=== PATIENT | female | born 1960 | race Caucasian/White ===

== ENCOUNTER → 2016-10-06 | Outpatient (REF) | payer MEDICARE, MEDICAID ==
[~2016-10-06] MED LIST: /ADVA50050 INH; /ESCI20TA OR; /LOR25TA PO; /MOXI40TA PO; /TIOT18INH INH; ALBU0.084 INH; ALBU83IN IN; BACIDCA PO; CEFT500T PO; CEFU125S PO; DICL0.1S7 TOP; DIPH2.5L PO; ESCI20TA PO; FLEXERIL PO; IMIT20SP; ISENTRESS PO; KEPP500T4 PO; LYRI200C PO; OXYB5TAB5 OR; POLYBTL PO; PREG100CA OR; PRIL40CA OR; ROPI0.5T PO; ROPI2TAB PO; STAVUDINE PO; SUMA6INJ16 SC; SUSTIVA PO; TRAZ100T PO; TRAZ100T2 PO; TRAZ150T PO; VIREAD PO; [UNRECOGNIZED DRUG - CODE] PO; emla cream TOP; keflex PO; lyrica PO; percocet PO; trazadone PO; ultram PO; vicodin PO
[2016-10-06 12:26] LABS: ALBUMIN 3.9 GM/DL (3.2-5.2); ALBUMIN/GLOBULIN RATIO 1.15 (1.00-1.93); ALKALINE PHOSPHATASE 85 U/L (45-117); ALT/SGPT 20 U/L (12-78); ANION GAP 6 MEQ/L (8-16); AST/SGOT 19 U/L (15-37); BILIRUBIN,TOTAL 0.2 MG/DL (0.2-1.0); BLOOD UREA NITROGEN 23 MG/DL (7-18); CALCIUM LEVEL 8.9 MG/DL (8.5-10.1); CARBON DIOXIDE LEVEL 26 MEQ/L (21-32); CHLORIDE LEVEL 108 MEQ/L (98-107); CHOLESTEROL LEVEL 115 MG/DL (<200); CREATININE FOR GFR 1.24 MG/DL (0.55-1.02); GLOMERULAR FILTRATION RATE 47.5 (>51); GLUCOSE, FASTING 93 MG/DL (70-105); POTASSIUM SERUM 4.5 MEQ/L (3.5-5.1); SODIUM LEVEL 140 MEQ/L (136-145); TOTAL PROTEIN 7.3 GM/DL (6.4-8.2); TRIGLYCERIDES LEVEL 130 MG/DL (<150)
[2016-10-08 00:16] LABS: %CD3+CD4+CD8+ 0.3 % (Not Estab.); %CD3+CD4+CD8- 29.7 % (Not Estab.); %CD3+CD4-CD8+ 37.9 % (Not Estab.); %CD3+CD4-CD8- 1.5 % (Not Estab.); ABS CD3+CD4+CD8+ 8 /uL (Not Estab.); ABS CD3+CD4+CD8- 772 /uL (Not Estab.); ABS CD3+CD4-CD8+ 985 /uL (Not Estab.); ABS CD3+CD4-CD8- 39 /uL (Not Estab.); CD4/CD8 NYSDOH RATIO 0.78 (Not Estab.); Eosinophils 0 % (.); HGB 15.1 g/dL (11.1-15.9); Monocytes 8 % (.); Neutrophils 56 % (.)
== END ==
LOC: M SFHCPLAZ 09:25
PROVIDERS: ATTEND Internal Medicine Infectious Disease
DX: B20 Human immunodeficiency virus [HIV] disease (principal); I77.1 Stricture of artery; K21.9 Gastro-esophageal reflux disease without esophagitis; Z79.891 Long term (current) use of opiate analgesic; Z79.899 Other long term (current) drug therapy
CPT/HCPCS: 36415; 80053; 80061; 81001; 86360; 86780; 87491; 87536; 87591; G0463

== ENCOUNTER → 2017-01-16 | Outpatient (REF) | payer MEDICARE, MEDICAID ==
[2017-01-16 13:39] LABS: INR 0.92
[2017-01-16 13:40] LABS: BASO % 0.4 % (0.0-1.0); EOS % 0.3 % (0.0-3.0); LARGE UNSTAINED CELL # 0.2 K/mm3 (0.0-0.4); LARGE UNSTAINED CELL % 2.6 % (0.0-4.0); LYMPH # 2.7 K/mm3 (1.5-4.5); LYMPH % 33.7 % (24.0-44.0); MEAN CORPUSCULAR HEMOGLOBIN 38.9 pg (27.0-33.0); MEAN CORPUSCULAR HGB CONC 34.5 g/dl (32.0-36.5); MEAN CORPUSCULAR VOLUME 112.8 fl (80.0-96.0); MONO # 0.6 K/mm3 (0.0-0.8); MONO % 7.5 % (0.0-5.0); NEUTROPHILS # 4.1 K/mm3 (1.8-7.7); NEUTROPHILS % 55.5 % (36.0-66.0); PLATELET COUNT, AUTOMATED 151 k/mm3 (150-450); RED CELL DISTRIBUTION WIDTH 14.3 % (11.5-14.5); WHITE BLOOD COUNT 7.4 K/mm3 (4.0-10.0)
[2017-01-16 15:13] LABS: CALCIUM LEVEL 8.9 MG/DL (8.5-10.1); CREATININE FOR GFR 1.13 MG/DL (0.55-1.02); GLOMERULAR FILTRATION RATE 52.8 (>51)
== END ==
LOC: M LABDRWAD 13:08
PROVIDERS: ATTEND Surgery Vascular Surgery
DX: Z01.818 Encounter for other preprocedural examination (principal); I70.211 Atherosclerosis of native arteries of extremities with intermittent claudication, right leg; D69.8 Other specified hemorrhagic conditions

== ENCOUNTER → 2017-03-23 | Outpatient (CLI) | payer MEDICARE, MEDICAID ==
[~2017-03-23] MED LIST changes: +ISOVUE-370 76% 100ML VIAL (Q9967) As Ordered ONE
--- NOTE | 2017-03-23 13:21 | REP ---
CT CHEST WITH IV CONTRAST: HISTORY: 5 mm density left upper lobe. Comparison CT study is from May 01, 2014. CT CONTRAST DOSE: 75 mL of intravenous Isovue 370. 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 Incidental note is made of a patent arterial vascular bypass graft proximal anastomoses is in the axillary artery on the right and the graft is seen coursing along the right lateral chest wall off the imaging field of view. No hilar or mediastinal mass or adenopathy is seen. No pleural or pericardial effusion is seen. No adrenal lesion is observed on either side. The visualized abdominal structures are otherwise unremarkable. There are mild emphysematous changes in the upper lobes bilaterally. No infiltrate is seen in the lung dawson. There is a calcified granuloma in the left upper lobe on image #29 of series 201 unchanged from the 05/01/2014 prior study. There is another calcified granuloma just caudal to this anteriorly best seen on image number 33 also unchanged. A calcified granulomatous nodule is seen in the superior segment of the left lower lobe on image number 49 unchanged from the prior exam. There is some chronic fibroatelectasis in the medial segment of the right middle lobe unchanged. No significant pulmonary nodule or mass lesion is seen. IMPRESSION: 1. Mild emphysematous changes unchanged. 2. Chronic fibroatelectasis right middle lobe unchanged. 3. Old granulomatous calcifications unchanged. 4. No active disease. 5. Right axillofemoral graft noted incidentally. Signed by José Fernandez MD 03/23/2017 01:40 P
== END ==
LOC: M RAD 09:02
PROVIDERS: ATTEND Nurse Practitioner Family
DX: J84.10 Pulmonary fibrosis, unspecified (principal); J43.9 Emphysema, unspecified
CPT/HCPCS: 71260; Q9967

== ENCOUNTER → 2017-04-18 | Outpatient (REF) | payer MEDICARE, MEDICAID ==
[~2017-04-18] MED LIST changes: -ISOVUE-370 76% 100ML VIAL (Q9967) As Ordered ONE
== END ==
LOC: M SFHCPLAZ 09:04
PROVIDERS: ATTEND Internal Medicine Infectious Disease
DX: B20 Human immunodeficiency virus [HIV] disease (principal); I73.9 Peripheral vascular disease, unspecified
CPT/HCPCS: 36415; 90686; G0008; G0463

== ENCOUNTER → 2017-12-04 | Outpatient (CLI) | payer MEDICARE, MEDICAID | LOC: M RAD 12:46 | DX: M79.645 Pain in left finger(s) (principal) | CPT/HCPCS: 73120 ==

== ENCOUNTER → 2017-12-25 | Outpatient (REF) | payer MEDICARE, MEDICAID ==
[2017-12-25 13:44] LABS: PARTIAL THROMBOPLASTIN TIME 30.3 SECONDS (26.8-37.9)
== END ==
LOC: M LAB REF 12:30
DX: Z01.812 Encounter for preprocedural laboratory examination (principal); D69.8 Other specified hemorrhagic conditions; I70.211 Atherosclerosis of native arteries of extremities with intermittent claudication, right leg
CPT/HCPCS: 85730

== ENCOUNTER → 2017-12-26 | Outpatient (REF) | payer MEDICARE, MEDICAID ==
[2017-12-26 12:51] LABS: BASO % 0.1 % (0.0-1.0); EOS % 0.3 % (0.0-3.0); HEMATOCRIT 36.9 % (36.0-47.0); HEMOGLOBIN 12.6 g/dl (12.0-15.5); IMMATURE GRANULOCYTE % 0.3 % (0-3.0); LYMPH # 2.3 10^3/uL (1.5-4.5); LYMPH % 33.8 % (24.0-44.0); MEAN CORPUSCULAR HEMOGLOBIN 36.2 pg (27.0-33.0); MEAN CORPUSCULAR HGB CONC 34.1 g/dl (32.0-36.5); MONO # 0.8 10^3/uL (0.0-0.8); MONO % 11.6 % (0.0-5.0); NEUTROPHILS # 3.7 10^3/uL (1.8-7.7); NEUTROPHILS % 53.9 % (36.0-66.0); PLATELET COUNT, AUTOMATED 183 10^3/uL (150-450); RED BLOOD COUNT 3.48 10^6/uL (4.00-5.40); RED CELL DISTRIBUTION WIDTH 14.8 % (11.5-14.5); WHITE BLOOD COUNT 6.8 10^3/uL (4.0-10.0)
[2017-12-26 13:09] LABS: INR 0.92; PROTHROMBIN TIME 12.4 SECONDS (12.4-14.5)
[2017-12-26 13:10] LABS: PARTIAL THROMBOPLASTIN TIME 28.3 SECONDS (26.8-37.9)
[2017-12-26 13:16] LABS: ANION GAP 8 MEQ/L (8-16); BLOOD UREA NITROGEN 21 MG/DL (7-18); CALCIUM LEVEL 8.5 MG/DL (8.5-10.1); CARBON DIOXIDE LEVEL 24 MEQ/L (21-32); CHLORIDE LEVEL 109 MEQ/L (98-107); CREATININE FOR GFR 1.01 MG/DL (0.55-1.30); GLOMERULAR FILTRATION RATE 59.9 (>51); GLUCOSE, FASTING 94 MG/DL (70-100); POTASSIUM SERUM 4.4 MEQ/L (3.5-5.1); SODIUM LEVEL 141 MEQ/L (136-145)
== END ==
LOC: M LABDRWAD 12:42
DX: Z01.818 Encounter for other preprocedural examination (principal); I70.211 Atherosclerosis of native arteries of extremities with intermittent claudication, right leg; D69.8 Other specified hemorrhagic conditions
CPT/HCPCS: 80048

== ENCOUNTER → 2018-02-27 | Outpatient (REF) | payer MEDICARE, MEDICAID | LOC: M SFHCPLAZ 11:50 | DX: B20 Human immunodeficiency virus [HIV] disease (principal); I77.1 Stricture of artery; Z53.8 Procedure and treatment not carried out for other reasons ==

== ENCOUNTER → 2018-04-02 | Outpatient (REF) | payer MEDICARE ==
[2018-04-02 12:39] LABS: APPEARANCE, URINE CLEAR (CLEAR); BACTERIA, URINE AUTO NEGATIVE (NEGATIVE); BILIRUBIN, URINE AUTO NEGATIVE (NEGATIVE); BLOOD, URINE BLOOD NEGATIVE (NEGATIVE); COLOR, URINE STRAW (YELLOW); GLUCOSE, URINE (UA) AUTO NEGATIVE (NEGATIVE); KETONE, URINE AUTO NEGATIVE (NEGATIVE); LEUKOCYTE ESTERASE, URINE AUTO NEGATIVE (NEGATIVE); MUCUS, URINE SMALL (NEGATIVE); NITRITE, URINE AUTO NEGATIVE (NEGATIVE); PROTEIN, URINE AUTO NEGATIVE (NEGATIVE); RBC, URINE AUTO 0 /HPF (0-3); SPECIFIC GRAVITY URINE AUTO 1.009 (1.002-1.035); SQUAMOUS EPITHELIAL CELL UR AU 0 /HPF (0-6); UROBILINOGEN, URINE AUTO 0.2 mg/dL (0.0-2.0); WBC, URINE AUTO 1 /HPF (0-3)
[2018-04-02 14:05] LABS: CHLAMYDIA DNA AMPLIFICATION NEGATIVE (NEGATIVE); GC DNA AMPLIFICATION NEGATIVE (NEGATIVE)
== END ==
LOC: M SFHCPLAZ 10:33
DX: Z11.3 Encounter for screening for infections with a predominantly sexual mode of transmission (principal); B20 Human immunodeficiency virus [HIV] disease
CPT/HCPCS: 81001

== ENCOUNTER → 2018-04-04 | Outpatient (REF) | payer MEDICARE ==
[2018-04-04 16:49] LABS: ALBUMIN 3.7 GM/DL (3.2-5.2); ALKALINE PHOSPHATASE 79 U/L (45-117); ALT/SGPT 20 U/L (12-78); ANION GAP 7 MEQ/L (8-16); AST/SGOT 15 U/L (7-37); BILIRUBIN,TOTAL 0.3 MG/DL (0.2-1.0); BLOOD UREA NITROGEN 16 MG/DL (7-18); CARBON DIOXIDE LEVEL 28 MEQ/L (21-32); CHLORIDE LEVEL 105 MEQ/L (98-107); CHOLESTEROL LEVEL 108 MG/DL (<200); CHOLESTEROL RISK RATIO 2.347 (<5); CREATININE FOR GFR 1.09 MG/DL (0.55-1.30); GLOMERULAR FILTRATION RATE 54.9 (>51); GLUCOSE, FASTING 108 MG/DL (70-100); HDL CHOLESTEROL 46 MG/DL (>40); LDL CHOLESTEROL 41.2 MG/DL (<100); NON-HDL-C 62 MG/DL; POTASSIUM SERUM 4.3 MEQ/L (3.5-5.1); SODIUM LEVEL 140 MEQ/L (136-145); TOTAL PROTEIN 7.4 GM/DL (6.4-8.2); TRIGLYCERIDES LEVEL 104 MG/DL (<150)
[2018-04-07 00:08] LABS: % CD8 Pos Lymph 38.7 % (12.0-35.5); %CD4 Pos Lymphs 35.9 % (30.8-58.5); ABS Lymphs 1.9 x10E3/uL (0.7-3.1); ABS Monocytes 0.5 x10E3/uL (0.1-0.9); ABS Neutophils 4.1 x10E3/uL (1.4-7.0); Abs CD4 Helper 682 /uL (359-1519); Abs CD8 Suppres 735 /uL (109-897); CD4/CD8 Ratio 0.93 (0.92-3.72); Eosinophils 0 % (Not Estab.); HCT 39.6 % (34.0-46.6); HGB 13.4 g/dL (11.1-15.9); Immature Grans 0 % (Not Estab.); Lymphocytes 29 % (Not Estab.); MCH 36.2 pg (26.6-33.0); MCHC 33.8 g/dL (31.5-35.7); MCV 107 fL (79-97); Monocytes 8 % (Not Estab.); Neutrophils 63 % (Not Estab.); Platelets 211 x10E3/uL (150-379); QUANTIFERON GOLD TB Negative (Negative); RDW 15.7 % (12.3-15.4); TB Test (QFT) Antigen 0.05 IU/mL (.); TB Test (QFT) Antigen Minus Ni 0.02 IU/mL (.); TB Test (QFT) Mitogen 8.82 IU/mL (.); TB Test (QFT) Nil 0.03 IU/mL (.); WBC 6.6 x10E3/uL (3.4-10.8)
[2018-04-11 00:07] LABS: HIV-1 RNA PCR QUANT 2 LC550285 <20 copies/mL (.)
== END ==
LOC: M SFHCPLAZ 12:04 → M SFHCADAM 12:04
DX: B20 Human immunodeficiency virus [HIV] disease (principal); I77.1 Stricture of artery
CPT/HCPCS: 80053

== ENCOUNTER → 2018-04-30 | Outpatient (CLI) | payer MEDICARE | LOC: M ADAMS 09:26 | DX: S20.212A Contusion of left front wall of thorax, initial encounter (principal); M85.80 Other specified disorders of bone density and structure, unspecified site | CPT/HCPCS: 71101 ==

== ENCOUNTER → 2018-05-28 | Outpatient (REF) | payer MEDICARE ==
[2018-06-01 12:51] LABS: HSV-1 DNA Negative (Negative); HSV-2 DNA Negative (Negative); VARICELLA ZOSTER VIRUS PCR Negative (Negative)
== END ==
LOC: M SFHCPLAZ 13:47
DX: B20 Human immunodeficiency virus [HIV] disease (principal); Z23 Encounter for immunization
CPT/HCPCS: 87529

== ENCOUNTER → 2018-09-10 | Outpatient (REF) | payer MEDICARE ==
[2018-09-10 11:24] LABS: APPEARANCE, URINE CLEAR (CLEAR); BACTERIA, URINE AUTO NEGATIVE (NEGATIVE); BILIRUBIN, URINE AUTO NEGATIVE (NEGATIVE); BLOOD, URINE BLOOD NEGATIVE (NEGATIVE); COLOR, URINE YELLOW (YELLOW); GLUCOSE, URINE (UA) AUTO NEGATIVE (NEGATIVE); KETONE, URINE AUTO NEGATIVE (NEGATIVE); LEUKOCYTE ESTERASE, URINE AUTO NEGATIVE (NEGATIVE); NITRITE, URINE AUTO NEGATIVE (NEGATIVE); PROTEIN, URINE AUTO NEGATIVE (NEGATIVE); RBC, URINE AUTO 2 /HPF (0-3); SPECIFIC GRAVITY URINE AUTO 1.025 (1.002-1.035); SQUAMOUS EPITHELIAL CELL UR AU 0 /HPF (0-6); UROBILINOGEN, URINE AUTO 0.2 mg/dL (0.0-2.0); WBC, URINE AUTO 1 /HPF (0-3)
[2018-09-10 12:35] LABS: ALBUMIN 3.8 GM/DL (3.2-5.2); ALT/SGPT 20 U/L (12-78); BILIRUBIN,TOTAL 0.2 MG/DL (0.2-1.0); BLOOD UREA NITROGEN 25 MG/DL (7-18); CALCIUM LEVEL 8.6 MG/DL (8.5-10.1); CARBON DIOXIDE LEVEL 25 MEQ/L (21-32); CHLORIDE LEVEL 106 MEQ/L (98-107); CHOLESTEROL LEVEL 130 MG/DL (<200); CHOLESTEROL RISK RATIO 2.131 (<5); CREATININE FOR GFR 0.95 MG/DL (0.55-1.30); GLOMERULAR FILTRATION RATE > 60.0 (>51); GLUCOSE, FASTING 88 MG/DL (70-100); HDL CHOLESTEROL 61 MG/DL (>40); LDL CHOLESTEROL 51 MG/DL (<100); NON-HDL-C 69 MG/DL; POTASSIUM SERUM 4.5 MEQ/L (3.5-5.1); SODIUM LEVEL 138 MEQ/L (136-145); TOTAL PROTEIN 7.5 GM/DL (6.4-8.2); TRIGLYCERIDES LEVEL 89 MG/DL (<150)
[2018-09-12 10:41] LABS: % CD8 Pos Lymph 37.2 % (12.0-35.5); %CD4 Pos Lymphs 35.3 % (30.8-58.5); ABS Lymphs 1.9 x10E3/uL (0.7-3.1); ABS Monocytes 0.7 x10E3/uL (0.1-0.9); ABS Neutophils 3.7 x10E3/uL (1.4-7.0); Abs CD4 Helper 671 /uL (359-1519); Abs CD8 Suppres 707 /uL (109-897); CD4/CD8 Ratio 0.95 (0.92-3.72); Eosinophils 1 % (Not Estab.); HCT 39.8 % (34.0-46.6); HGB 13.1 g/dL (11.1-15.9); Immature Grans 0 % (Not Estab.); Lymphocytes 30 % (Not Estab.); MCH 34.6 pg (26.6-33.0); MCHC 32.9 g/dL (31.5-35.7); MCV 105 fL (79-97); Monocytes 11 % (Not Estab.); Neutrophils 58 % (Not Estab.); Platelets 173 x10E3/uL (150-379); RBC 3.79 x10E6/uL (3.77-5.28); RDW 15.6 % (12.3-15.4); WBC 6.3 x10E3/uL (3.4-10.8)
[2018-09-13 00:07] LABS: HIV-1 RNA PCR QUANT 2 LC550285 40 copies/mL (.); HIV-1 RNA PCR QUANT 3 LC550285 1.602 (.)
== END ==
LOC: M SFHCPLAZ 08:46
PROVIDERS: ATTEND Internal Medicine Infectious Disease
DX: B20 Human immunodeficiency virus [HIV] disease (principal); I73.9 Peripheral vascular disease, unspecified; R35.0 Frequency of micturition; R21 Rash and other nonspecific skin eruption; M51.36 Other intervertebral disc degeneration, lumbar region; I77.1 Stricture of artery; M25.549 Pain in joints of unspecified hand
CPT/HCPCS: 36415; 80053; 80061; 81001; 86360; 86480; 87086; 87536; G0463

== ENCOUNTER 2018-11-08 10:30 | Day surgery (SDC) | payer MEDICARE ==
[~2018-11-08] VITALS: Ht 142.2 cm; Wt 41.3 kg
[~2018-11-08 10:30] MED LIST changes: -/ADVA50050 INH; -/ESCI20TA OR; -/MOXI40TA PO; -/TIOT18INH INH; +ADVA1AER2 INH; +AVEL1TAB2 PO; +AVEL1TAB3 PO; +BUSP15TA47 PO; +CYCL10TA PO; +DITR5TAB PO; +HYDR-3719 PO; +LEVE15SO2 PO; +LEXA1TAB2 OR; +LEXA1TAB2 PO; +LIDOCAINE 2% INJ 100 MG/5 ML SDV (FOR ANES.) As Ordered ONE; +MIRA33504 PO; +OMEP40CA2 PO; +PROAAER10 INH; +PROBCAP4 PO; +PROPOFOL 200 MG/20 ML VIAL As Ordered ONE; +ROPI2TAB24 PO; +SPIR1CAP INH; +SUMA4INJ4 SC; +TIOT18INH INH; +TRAZ300T2 PO; +[UNRECOGNIZED DRUG - CODE] PO
[2018-11-08] MEDS: NS 1,000 ML IV ONE (11:05)
[2018-11-08] MEDS ORDERED: fentaNYL 100 MCG/2 ML INJECTION (J3010) As Ordered ONE (11:55)
--- NOTE | 2018-11-08 12:31 | ROOR ---
Patient Name: Olamide Matson Procedure Date: 11/08/2018 12:16 PM Date of : 1960 Age: 58 Room: [facility] Gender: Female Note Status: Finalized Procedure: Upper GI endoscopy Indications: Epigastric abdominal pain Providers: Adrian JEONG MD Referring MD: Анна FOX MD. Requesting Provider: Medicines: Monitored Anesthesia Care Complications: No immediate complications. Procedure: Pre-Anesthesia Assessment: - The heart rate, respiratory rate, oxygen saturations, blood pressure, adequacy of pulmonary ventilation, and response to care were monitored throughout the procedure. The Endoscope was introduced through the mouth, and advanced to the third part of duodenum. The upper GI endoscopy was accomplished without difficulty. The patient tolerated the procedure well. Findings: Diffuse mildly erythematous mucosa without bleeding was found in the gastric antrum. This was biopsied with a cold forceps for histology. Bilious fluid was found in the stomach. The examined esophagus was normal. The examined duodenum was normal. Impression: - Erythematous mucosa in the antrum.- Bilious gastric fluid. Biopsied. - Normal esophagus. - Normal examined duodenum. Recommendation: - Use sucralfate tablets 1 gram PO BID. - (the script was sent to your pharmacy on file) Adrian Jeong MD Adrian JEONG MD 11/08/2018 12:30:19 PM Electronically signed by Adrian JEONG MD Number of Addenda: 0 Note Initiated On: 11/08/2018 12:16 PM Estimated Blood Loss: Estimated blood loss: none.
--- NOTE | 2018-11-08 12:40 | ROOR ---
Patient Name: Olamide Matson Procedure Date: 11/08/2018 12:17 PM Date of : 1960 Age: 58 Room: [facility] Gender: Female Note Status: Finalized Procedure: Colonoscopy Indications: High risk colon cancer surveillance: Personal history of colonic polyps, Last colonoscopy: October 2013 Providers: Adrian JEONG MD Referring MD: Анна FOX MD. Requesting Provider: Medicines: Monitored Anesthesia Care Complications: No immediate complications. Procedure: Pre-Anesthesia Assessment: - The heart rate, respiratory rate, oxygen saturations, blood pressure, adequacy of pulmonary ventilation, and response to care were monitored throughout the procedure. The Colonoscope was introduced through the anus and advanced to the cecum, identified by appendiceal orifice and ileocecal valve. The colonoscopy was performed with difficulty due to inadequate bowel prep. The patient tolerated the procedure well. The quality of the bowel preparation was poor. Findings: The perianal and digital rectal examinations were normal. The colon is grossly normal without large tumors or obstructing lesions. Unable to perform adequate detail examination. Small lesions may have been missed. Impression: - Preparation of the colon was poor. - The colon is without large tumors or obstructing lesions. Unable to perform adequate detail examination. Small lesions may have been missed. - No specimens collected. Recommendation: - Repeat colonoscopy at the next available appointment because the bowel preparation was poor. - My office will call you within the next few days to reschedule a colonoscopy with alternate colon preparation. Adrian Jeong MD Adrian JEONG MD 11/08/2018 12:39:58 PM Electronically signed by Adrian JEONG MD Number of Addenda: 0 Note Initiated On: 11/08/2018 12:17 PM Estimated Blood Loss: Estimated blood loss: none.
[2018-11-08 13:00] VITALS: BP 112/79
== END 2018-11-08 13:13 | disposition home or self-care (01) ==
LOC: M OPP 10:30
PROVIDERS: ATTEND Internal Medicine Gastroenterology
DX: K29.60 Other gastritis without bleeding (principal); R10.13 Epigastric pain; Z86.010 Personal history of colon polyps
CPT/HCPCS: 45378; 88305; J3010

== ENCOUNTER → 2019-07-19 | Outpatient (CLI) | payer MEDICARE ==
[~2019-07-19] MED LIST changes: -LIDOCAINE 2% INJ 100 MG/5 ML SDV (FOR ANES.) As Ordered ONE; -OMEP40CA2 PO; +OMEP40CA97 PO; -PROPOFOL 200 MG/20 ML VIAL As Ordered ONE
--- NOTE | 2019-07-19 15:08 | REPMRS ---
Patient History The patient states she has not had a clinical breast exam in over a year. No known family history of cancer. 3D TOMOSYNTHESIS WAS PERFORMED. [facility] lifetime risk for breast cancer is 3.6%. Digital Woman Screen Mammo: July 19, 2019 - Exam #: [id number] Bilateral CC and MLO view(s) were taken. Technologist: Zenia Doran, Technologist Prior study comparison: November 12, 2014, digital woman screen mammo performed at [facility]. December 25, 2007, bilateral screening mammogram, performed at [facility]. FINDINGS: There are scattered fibroglandular densities. There has been no change in the appearance of the mammogram from the prior studies. There is a mild amount of residual fibroglandular tissue which is fairly symmetric. There is no interval development of dominant mass, architectural distortion, or clustered microcalcification suggestive of malignancy. Assessment: BI-RADS/ACR category 1 mammogram. Negative Mammogram. Recommendation Routine screening mammogram in 1 year (for women over age 40). This mammogram was interpreted with the aid of an FDA-approved computer-aided dectection system. Electronically Signed By: Miah Booker MD 07/19/19 [id number]
[2019-07-19 17:58] LABS: CALCIUM LEVEL 8.9 MG/DL (8.5-10.1); CREATININE FOR GFR 1.29 MG/DL (0.55-1.30); PHOSPHORUS LEVEL 2.6 MG/DL (2.5-4.9); POTASSIUM SERUM 4.4 MEQ/L (3.5-5.1)
[2019-07-19 17:59] LABS: ALBUMIN 3.9 GM/DL (3.2-5.2); BILIRUBIN,TOTAL 0.2 MG/DL (0.2-1.0); MAGNESIUM LEVEL 2.1 MG/DL (1.8-2.4); TOTAL PROTEIN 7.3 GM/DL (6.4-8.2)
--- NOTE | 2019-07-25 15:06 | DEXA ---
AP SPINE L1 - L4 0.872 -2.6 -1.4 LT FEMUR TOTAL 0.597 -3.3 -2.3 LT NECK 0.597 -3.2 -1.9 RT FEMUR TOTAL 0.593 -3.3 -2.4 RT NECK 0.603 -3.1 -1.9 TOTAL BODY TOTAL OTHER COMMENTS: There is osteoporosis of the spine and hips. The density of the spine has decreased 6.1% since 09/09/2005. The density of the left hip has decreased 18.3% since 09/09/2005. The density of the right hip has decreased 19.2% since 09/09/2005. FOLLOW-UP: Recommendation for the next bone density exam: 2 years. SALO
[2019-07-27 00:08] LABS: % CD8 Pos Lymph 39.2 % (12.0-35.5); %CD4 Pos Lymphs 34.9 % (30.8-58.5); ABS Lymphs 2.9 x10E3/uL (0.7-3.1); ABS Monocytes 0.6 x10E3/uL (0.1-0.9); Abs CD4 Helper 1012 /uL (359-1519); Abs CD8 Suppres 1137 /uL (109-897); CD4/CD8 Ratio 0.89 (0.92-3.72); Eosinophils 0 % (Not Estab.); HCT 41.4 % (34.0-46.6); HGB 13.8 g/dL (11.1-15.9); HIV-1 RNA PCR QUANT 1 LC162545 <20 copies/mL (.); Immature Grans 0 % (Not Estab.); Lymphocytes 44 % (Not Estab.); MCH 36.3 pg (26.6-33.0); MCHC 33.3 g/dL (31.5-35.7); MCV 109 fL (79-97); Monocytes 9 % (Not Estab.); Neutrophils 47 % (Not Estab.); Platelets 187 x10E3/uL (150-450); RDW 15.3 % (12.3-15.4); WBC 6.6 x10E3/uL (3.4-10.8)
== END ==
LOC: M WHC 13:40
PROVIDERS: ATTEND Internal Medicine Infectious Disease
DX: G25.3 Myoclonus (principal); B20 Human immunodeficiency virus [HIV] disease; Z12.31 Encounter for screening mammogram for malignant neoplasm of breast; M85.851 Other specified disorders of bone density and structure, right thigh

== ENCOUNTER → 2020-01-28 | Outpatient (CLI) | payer MEDICARE ==
[~2020-01-28] MED LIST changes: +CYCL-707 PO; -CYCL10TA PO; +ROPI0.5T3 PO
[2020-01-28 12:39] LABS: APPEARANCE, URINE HAZY (CLEAR); BACTERIA, URINE AUTO NEGATIVE (NEGATIVE); BILIRUBIN, URINE AUTO NEGATIVE (NEGATIVE); BLOOD, URINE BLOOD NEGATIVE (NEGATIVE); COLOR, URINE YELLOW (YELLOW); GLUCOSE, URINE (UA) AUTO NEGATIVE (NEGATIVE); KETONE, URINE AUTO NEGATIVE (NEGATIVE); LEUKOCYTE ESTERASE, URINE AUTO TRACE (NEGATIVE); MUCUS, URINE SMALL (NEGATIVE); NITRITE, URINE AUTO NEGATIVE (NEGATIVE); PROTEIN, URINE AUTO 1+ mg/dL (NEGATIVE); RBC, URINE AUTO 0 /HPF (0-3); SQUAMOUS EPITHELIAL CELL UR AU 3 /HPF (0-6); UROBILINOGEN, URINE AUTO 0.2 mg/dL (0.0-2.0); WBC, URINE AUTO 1 /HPF (0-3)
[2020-01-28 13:03] LABS: ALBUMIN 3.8 GM/DL (3.2-5.2); BILIRUBIN,TOTAL 0.3 MG/DL (0.2-1.0); CALCIUM LEVEL 8.8 MG/DL (8.8-10.2); CHOLESTEROL RISK RATIO 2.454 (<5); CREATININE FOR GFR 1.16 MG/DL (0.55-1.30); GLOMERULAR FILTRATION RATE 50.7 (>45); POTASSIUM SERUM 4.5 MEQ/L (3.5-5.1); TOTAL PROTEIN 7.6 GM/DL (6.4-8.2)
[2020-01-28 15:35] LABS: CHLAMYDIA DNA AMPLIFICATION NEGATIVE (NEGATIVE); GC DNA AMPLIFICATION NEGATIVE (NEGATIVE)
[2020-01-29 14:09] LABS: % CD8 Pos Lymph 37.6 % (12.0-35.5); %CD4 Pos Lymphs 31.7 % (30.8-58.5); ABS Lymphs 1.8 x10E3/uL (0.7-3.1); ABS Monocytes 0.6 x10E3/uL (0.1-0.9); ABS Neutophils 3.6 x10E3/uL (1.4-7.0); Abs CD4 Helper 571 /uL (359-1519); Abs CD8 Suppres 677 /uL (109-897); CD4/CD8 Ratio 0.84 (0.92-3.72); Eosinophils 0 % (Not Estab.); HCT 37.6 % (34.0-46.6); HGB 13.3 g/dL (11.1-15.9); Immature Grans 0 % (Not Estab.); Lymphocytes 29 % (Not Estab.); MCH 36.6 pg (26.6-33.0); MCHC 35.4 g/dL (31.5-35.7); MCV 104 fL (79-97); Monocytes 11 % (Not Estab.); Neutrophils 60 % (Not Estab.); Platelets 175 x10E3/uL (150-450); RBC 3.63 x10E6/uL (3.77-5.28); WBC 6.1 x10E3/uL (3.4-10.8)
[2020-01-30 15:17] LABS: HIV-1 RNA PCR QUANT 2 LC550285 <20 copies/mL (.)
== END ==
LOC: M PLALAB 09:24
PROVIDERS: ATTEND Internal Medicine Infectious Disease
DX: B20 Human immunodeficiency virus [HIV] disease (principal); I77.1 Stricture of artery

== ENCOUNTER → 2020-07-23 | Outpatient (CLI) | payer MEDICARE ==
--- NOTE | 2020-07-23 11:24 | REPMRS ---
Patient History The patient states she has not had a clinical breast exam in over a year. No known family history of cancer. Digital Woman Screen Mammo: July 23, 2020 - Exam #: [id number] Bilateral CC and MLO view(s) were taken. Technologist: Zenia Doran, Technologist Prior study comparison: July 19, 2019, bilateral digital woman screen mammo performed at [facility]. November 12, 2014, digital woman screen mammo performed at [facility]. December 25, 2007, bilateral screening mammogram, performed at [facility]. FINDINGS: There are scattered fibroglandular densities. The [employer] volumetric breast density category is:B. There is a corrugated tubular opacity projecting over the right axilla which the patient informs us is a implanted vascular graft. There has been no change in the appearance of the mammogram from the prior studies. There is a mild amount of scattered fibroglandular density which is fairly symmetric. There is no interval development of dominant mass, architectural distortion, or grouped microcalcification suggestive of malignancy. 3-D tomosynthesis shows no additional findings. Assessment: BI-RADS/ACR category 2 mammogram. Benign Findings. Recommendation Routine screening mammogram of both breasts in 1 year (for women over age 40). This patient's [facility] Lifetime Breast Cancer Risk is estimated at 3.5 %. This mammogram was interpreted with the aid of an FDA-approved computer-aided dectection system. Electronically Signed By: Alirio Fernandez MD 07/23/20 [id number]
== END ==
LOC: M WHC 10:35
PROVIDERS: ATTEND Internal Medicine Infectious Disease
DX: Z12.31 Encounter for screening mammogram for malignant neoplasm of breast (principal)

== ENCOUNTER → 2020-08-18 | Outpatient (REF) | payer MEDICARE | LOC: M SFHCPLAZ 13:15 | PROVIDERS: ATTEND Internal Medicine Infectious Disease | DX: B20 Human immunodeficiency virus [HIV] disease (principal); F41.1 Generalized anxiety disorder; M51.36 Other intervertebral disc degeneration, lumbar region | CPT/HCPCS: 80307; G0463 ==

== ENCOUNTER → 2021-01-13 | Outpatient (REF) | payer MEDICARE ==
[2021-01-13 12:58] LABS: BASO % 0.3 % (0.0-1.0); EOS % 0.1 % (0.0-3.0); LYMPH # 2.5 10^3/uL (1.5-5.0); LYMPH % 35.5 % (24.0-44.0); MEAN CORPUSCULAR HEMOGLOBIN 35.3 pg (27.0-33.0); MEAN CORPUSCULAR HGB CONC 33.3 g/dl (32.0-36.5); MONO # 0.7 10^3/uL (0.0-0.8); MONO % 10.3 % (2.0-8.0); NEUTROPHILS # 3.7 10^3/uL (1.5-8.5); NEUTROPHILS % 53.5 % (36.0-66.0); PLATELET COUNT, AUTOMATED 172 10^3/uL (150-450); RED BLOOD COUNT 3.68 10^6/uL (4.00-5.40); WHITE BLOOD COUNT 6.9 10^3/uL (4.0-10.0)
[2021-01-13 17:49] LABS: ALBUMIN 3.6 GM/DL (3.2-5.2); BILIRUBIN,TOTAL 0.2 MG/DL (0.2-1.0); CALCIUM LEVEL 8.4 MG/DL (8.8-10.2); CHOLESTEROL RISK RATIO 2.62 (<5); CREATININE FOR GFR 1.14 MG/DL (0.55-1.30); FREE T4 0.77 NG/DL (0.76-1.46); GLOMERULAR FILTRATION RATE 51.6 (>45); POTASSIUM SERUM 4.2 MEQ/L (3.5-5.1); THYROID STIMULATING HORMONE 0.561 uIU/ML (0.358-3.740); TOTAL 25(OH) VITAMIN D 45.3 NG/ML (30.0-100.0); TOTAL PROTEIN 7.2 GM/DL (6.4-8.2)
== END ==
LOC: M SFHCPLAZ 11:40
PROVIDERS: ATTEND Nurse Practitioner Family
DX: M81.0 Age-related osteoporosis without current pathological fracture (principal); F32.9 Major depressive disorder, single episode, unspecified; E55.9 Vitamin D deficiency, unspecified; Z13.220 Encounter for screening for lipoid disorders; Z79.899 Other long term (current) drug therapy

== ENCOUNTER → 2021-02-16 | Outpatient (REF) | payer MEDICARE ==
[~2021-02-16] MED LIST changes: +OMEP40CA4 PO; -OMEP40CA97 PO; +SUMA4CAR SC; -SUMA4INJ4 SC
[2021-02-19 00:07] LABS: % CD8 Pos Lymph 41.3 % (12.0-35.5); %CD4 Pos Lymphs 33.6 % (30.8-58.5); ABS Lymphs 3.3 x10E3/uL (0.7-3.1); Abs CD4 Helper 1109 /uL (359-1519); Abs CD8 Suppres 1363 /uL (109-897); CD4/CD8 Ratio 0.81 (0.92-3.72); Eosinophils 0 % (Not Estab.); HCT 37.8 % (34.0-46.6); HGB 12.8 g/dL (11.1-15.9); HIV-1 RNA PCR QUANT 2 LC550285 <20 copies/mL (.); Immature Grans 0 % (Not Estab.); Lymphocytes 40 % (Not Estab.); MCH 35.2 pg (26.6-33.0); MCHC 33.9 g/dL (31.5-35.7); MCV 104 fL (79-97); Monocytes 11 % (Not Estab.); Neutrophils 49 % (Not Estab.); Platelets 186 x10E3/uL (150-450); RBC 3.64 x10E6/uL (3.77-5.28); RDW 13.7 % (11.7-15.4); WBC 8.3 x10E3/uL (3.4-10.8)
== END ==
LOC: M SFHCPLAZ 13:38 → M SFHCADAM 13:40
PROVIDERS: ATTEND Internal Medicine Infectious Disease
DX: B20 Human immunodeficiency virus [HIV] disease (principal)
CPT/HCPCS: 86360; 87536; G0463

== ENCOUNTER → 2021-06-25 | Outpatient (CLI) | payer MEDICARE ==
[~2021-06-25] MED LIST changes: -SUMA4CAR SC; +SUMA4INJ4 SC
== END ==
LOC: M PLARAD 10:59
PROVIDERS: ATTEND Nurse Practitioner Family
DX: M51.36 Other intervertebral disc degeneration, lumbar region (principal); Z53.8 Procedure and treatment not carried out for other reasons

== ENCOUNTER → 2021-07-20 | Outpatient (REF) | payer MEDICARE ==
[~2021-07-20] MED LIST changes: +SUMA4CAR SC; -SUMA4INJ4 SC
[2021-07-27 05:10] LABS: CANNABINOID, URINE Positive (Cutoff=20); CARBOXY THC (GC/MS) >300 ng/mL (Cutoff=10); CREATININE, URINE 143.2 mg/dL (20.0-300.0)
== END ==
LOC: M SFHCPLAZ 13:10
PROVIDERS: ATTEND Nurse Practitioner Family
DX: M51.36 Other intervertebral disc degeneration, lumbar region (principal)
CPT/HCPCS: 80307; G0463

== ENCOUNTER → 2021-07-21 | Outpatient (CLI) | payer MEDICARE ==
[~2021-07-21] MED LIST changes: -SUMA4CAR SC; +SUMA4INJ4 SC
[2021-07-21 13:18] LABS: BASO % 0.3 % (0.0-1.0); EOS % 0.3 % (0.0-3.0); HEMATOCRIT 38.8 % (36.0-47.0); HEMOGLOBIN 13.1 g/dl (12.0-15.5); LYMPH # 2.1 10^3/uL (1.5-5.0); LYMPH % 33.8 % (24.0-44.0); MEAN CORPUSCULAR HEMOGLOBIN 36.3 pg (27.0-33.0); MEAN CORPUSCULAR HGB CONC 33.8 g/dl (32.0-36.5); MEAN CORPUSCULAR VOLUME 107.5 fl (80.0-96.0); MONO # 0.6 10^3/uL (0.0-0.8); MONO % 10.6 % (2.0-8.0); NEUTROPHILS # 3.3 10^3/uL (1.5-8.5); NEUTROPHILS % 54.8 % (36.0-66.0); PLATELET COUNT, AUTOMATED 186 10^3/uL (150-450); RED BLOOD COUNT 3.61 10^6/uL (4.00-5.40); WHITE BLOOD COUNT 6.1 10^3/uL (4.0-10.0)
[2021-07-21 13:55] LABS: ALBUMIN 3.6 GM/DL (3.2-5.2); BILIRUBIN,TOTAL 0.2 MG/DL (0.2-1.0); CALCIUM LEVEL 8.6 MG/DL (8.8-10.2); CREATININE FOR GFR 1.31 MG/DL (0.55-1.30); FREE T4 0.83 NG/DL (0.76-1.46); GLOMERULAR FILTRATION RATE 43.9 (>45); THYROID STIMULATING HORMONE 0.813 uIU/ML (0.358-3.740); TOTAL 25(OH) VITAMIN D 43.4 NG/ML (30.0-100.0)
== END ==
LOC: M PLALAB 11:01
PROVIDERS: ATTEND Nurse Practitioner Family
DX: E55.9 Vitamin D deficiency, unspecified (principal); F32.9 Major depressive disorder, single episode, unspecified; B20 Human immunodeficiency virus [HIV] disease

== ENCOUNTER → 2021-09-07 | Outpatient (CLI) | payer MEDICARE ==
[~2021-09-07] MED LIST changes: +SUMA4CAR SC; -SUMA4INJ4 SC
== END ==
LOC: M WHC 12:53
PROVIDERS: ATTEND Nurse Practitioner Family
DX: Z12.31 Encounter for screening mammogram for malignant neoplasm of breast (principal); M81.0 Age-related osteoporosis without current pathological fracture

== ENCOUNTER → 2022-01-17 | Outpatient (CLI) | payer MEDICARE | LOC: M RAD 11:01 | PROVIDERS: ATTEND Internal Medicine Infectious Disease | DX: Z12.2 Encounter for screening for malignant neoplasm of respiratory organs (principal); Z87.891 Personal history of nicotine dependence ==

== ENCOUNTER → 2022-01-25 | Outpatient (CLI) | payer MEDICARE ==
[~2022-01-25] MED LIST changes: +ISOVUE-370 76% 100ML VIAL As Ordered ONE
== END ==
LOC: M RAD 08:31
PROVIDERS: ATTEND Surgery Vascular Surgery
DX: T82.855A Stenosis of coronary artery stent, initial encounter (principal); I70.1 Atherosclerosis of renal artery; K55.1 Chronic vascular disorders of intestine
CPT/HCPCS: 74174; Q9967

== ENCOUNTER → 2022-07-07 | Outpatient (CLI) | payer MEDICARE ==
[~2022-07-07] MED LIST changes: -ISOVUE-370 76% 100ML VIAL As Ordered ONE
== END ==
LOC: M SOG 07:53
PROVIDERS: ATTEND Orthopaedic Surgery Hand Surgery
DX: M25.522 Pain in left elbow (principal)

== ENCOUNTER 2022-08-21 18:46 | Emergency (ER) | payer MEDICARE ==
[~2022-08-21] VITALS: Ht 147.3 cm; Wt 34.2 kg
[2022-08-21 18:51] VITALS: BP 164/84
[2022-08-21] MEDS ORDERED: VENL37TA PO (19:44)
[2022-08-21] MEDS ORDERED: VENL75TA2 PO (19:44)
[2022-08-21] MEDS ORDERED: VENL50TA2 PO (19:44)
== END 2022-08-22 03:55 | disposition left against medical advice (07) ==
LOC: M ED 18:46
DX: Z53.21 Procedure and treatment not carried out due to patient leaving prior to being seen by health care provider (principal)

== ENCOUNTER → 2022-12-08 | Outpatient (CLI) | payer MEDICARE ==
[~2022-12-08] MED LIST changes: +VENL37TA PO; +VENL50TA2 PO; +VENL75TA2 PO
[2022-12-08 13:46] LABS: BASO % 0.2 % (0.0-1.0); EOS % 0.1 % (0.0-3.0); HEMATOCRIT 44.6 % (36.0-47.0); LYMPH # 2.5 10^3/uL (1.5-5.0); LYMPH % 29.4 % (24.0-44.0); MEAN CORPUSCULAR HEMOGLOBIN 37.8 pg (27.0-33.0); MEAN CORPUSCULAR HGB CONC 33.6 g/dl (32.0-36.5); MEAN CORPUSCULAR VOLUME 112.3 fl (80.0-96.0); MONO # 0.9 10^3/uL (0.0-0.8); MONO % 10.8 % (2.0-8.0); NEUTROPHILS # 4.9 10^3/uL (1.5-8.5); NEUTROPHILS % 59.3 % (36.0-66.0); PLATELET COUNT, AUTOMATED 160 10^3/uL (150-450); RED BLOOD COUNT 3.97 10^6/uL (4.00-5.40); WHITE BLOOD COUNT 8.3 10^3/uL (4.0-10.0)
[2022-12-08 14:13] LABS: FREE T4 0.9 NG/DL (0.89-1.76); THYROID STIMULATING HORMONE 1.291 uIU/ML (0.55-4.78); TOTAL 25(OH) VITAMIN D 73.4 NG/ML (20.0-100.0)
[2022-12-08 14:18] LABS: CHOLESTEROL RISK RATIO 2.54 (<5); HDL CHOLESTEROL 49.6 MG/DL (>40); LDL CHOLESTEROL 53.2 MG/DL (<100); NON-HDL-C 76.4 MG/DL
== END ==
LOC: M PLALAB 10:32
PROVIDERS: ATTEND Nurse Practitioner Family
DX: B20 Human immunodeficiency virus [HIV] disease (principal); Z79.899 Other long term (current) drug therapy

== ENCOUNTER → 2022-12-08 | Outpatient (CLI) | payer MEDICARE ==
[2022-12-08 14:10] LABS: ALBUMIN 4.2 G/DL (3.2-5.2); ALKALINE PHOSPHATASE 114 U/L (46-116); ALT/SGPT 20 U/L (7.0-40); AST/SGOT 25 U/L (<34); BILIRUBIN,TOTAL < 0.2 MG/DL (0.3-1.2); BLOOD UREA NITROGEN 27 MG/DL (9-23); CALCIUM LEVEL 9.4 MG/DL (8.3-10.6); CARBON DIOXIDE LEVEL 24 MMOL/L (20-31); CHLORIDE LEVEL 106 MMOL/L (98-107); CREATININE FOR GFR 1.53 MG/DL (0.55-1.30); GLOMERULAR FILTRATION RATE 36.5 (>45); GLUCOSE, FASTING 103 MG/DL (74-106); POTASSIUM SERUM 4.2 MMOL/L (3.5-5.1); SODIUM LEVEL 139 MMOL/L (136-145); TOTAL PROTEIN 7.9 G/DL (5.7-8.2)
[2022-12-12 14:08] LABS: %CD4 Pos Lymphs 31.5 % (30.8-58.5); ABS Lymphs 2.3 x10E3/uL (0.7-3.1); ABS Monocytes 0.8 x10E3/uL (0.1-0.9); ABS Neutophils 4.9 x10E3/uL (1.4-7.0); Abs CD4 Helper 725 /uL (359-1519); Abs CD8 Suppres 943 /uL (109-897); CD4/CD8 Ratio 0.77 (0.92-3.72); Eosinophils 0 % (Not Estab.); HCT 42.9 % (34.0-46.6); HGB 15.4 g/dL (11.1-15.9); HIV-1 RNA PCR QUANT 2 LC550285 <20 copies/mL (.); Immature Grans 0 % (Not Estab.); Lymphocytes 29 % (Not Estab.); MCH 38.6 pg (26.6-33.0); MCHC 35.9 g/dL (31.5-35.7); MCV 108 fL (79-97); Monocytes 10 % (Not Estab.); Neutrophils 61 % (Not Estab.); Platelets 160 x10E3/uL (150-450); RBC 3.99 x10E6/uL (3.77-5.28); RDW 13.2 % (11.7-15.4)
== END ==
LOC: M PLALAB 10:36
PROVIDERS: ATTEND Internal Medicine Infectious Disease
DX: B20 Human immunodeficiency virus [HIV] disease (principal)

== ENCOUNTER → 2022-12-27 | Outpatient (CLI) | payer MEDICARE | LOC: M SOG 07:58 | PROVIDERS: ATTEND Physician Assistant | DX: M25.522 Pain in left elbow (principal) ==

== ENCOUNTER → 2023-01-18 | Outpatient (CLI) | payer MEDICARE ==
[~2023-01-18] MED LIST changes: +ADV100INH INH; +ALBU8.5H INH; +CLOP75TA2 PO; +D3 S20002 PO; +OMEP40CA5 PO; +TENO300T2 PO; +TRIU1TAB PO
== END ==
LOC: M RAD 08:37
PROVIDERS: ATTEND Internal Medicine Infectious Disease
DX: Z87.891 Personal history of nicotine dependence (principal)

== ENCOUNTER → 2024-01-05 | Outpatient (REF) | payer MEDICARE ==
[~2024-01-05] MED LIST changes: -ROPI0.5T3 PO; +ROPI0.5T33 PO
[2024-01-05 18:12] LABS: BASO % 0.3 % (0.0-1.0); EOS % 0.2 % (0.0-3.0); HEMATOCRIT 35.5 % (36.0-47.0); HEMOGLOBIN 12.5 g/dl (12.0-15.5); LYMPH # 2.9 10^3/uL (1.5-5.0); LYMPH % 33.3 % (24.0-44.0); MEAN CORPUSCULAR HEMOGLOBIN 39.7 pg (27.0-33.0); MEAN CORPUSCULAR HGB CONC 35.2 g/dl (32.0-36.5); MEAN CORPUSCULAR VOLUME 112.7 fl (80.0-96.0); MONO # 0.9 10^3/uL (0.0-0.8); MONO % 10.4 % (2.0-8.0); NEUTROPHILS # 4.9 10^3/uL (1.5-8.5); NEUTROPHILS % 55.3 % (36.0-66.0); PLATELET COUNT, AUTOMATED 187 10^3/uL (150-450); RED BLOOD COUNT 3.15 10^6/uL (4.00-5.40); WHITE BLOOD COUNT 8.8 10^3/uL (4.0-10.0)
[2024-01-05 18:44] LABS: ALBUMIN 3.8 G/DL (3.2-5.2); BILIRUBIN,TOTAL 0.2 MG/DL (0.3-1.2); CREATININE FOR GFR 1.7 MG/DL (0.55-1.30); GLOMERULAR FILTRATION RATE 32.2 (>45); POTASSIUM SERUM 3.3 MMOL/L (3.5-5.1); TOTAL PROTEIN 7.3 G/DL (5.7-8.2)
[2024-01-05 18:45] LABS: FREE T4 0.75 NG/DL (0.89-1.76); THYROID STIMULATING HORMONE 1.719 uIU/ML (0.55-4.78)
[2024-01-09 18:12] LABS: % CD8 Pos Lymph 41.1 % (12.0-35.5); %CD4 Pos Lymphs 34.8 % (30.8-58.5); ABS Lymphs 2.8 x10E3/uL (0.7-3.1); ABS Monocytes 0.8 x10E3/uL (0.1-0.9); ABS Neutophils 4.7 x10E3/uL (1.4-7.0); Abs CD4 Helper 974 /uL (359-1519); Abs CD8 Suppres 1151 /uL (109-897); CD4/CD8 Ratio 0.85 (0.92-3.72); Eosinophils 0 % (Not Estab.); HGB 12.4 g/dL (11.1-15.9); HIV-1 RNA PCR QUANT 2 LC55028X <20 copies/mL (.); Immature Grans 0 % (Not Estab.); Lymphocytes 34 % (Not Estab.); MCH 39.6 pg (26.6-33.0); MCHC 35.4 g/dL (31.5-35.7); MCV 112 fL (79-97); Monocytes 10 % (Not Estab.); Neutrophils 56 % (Not Estab.); Platelets 189 x10E3/uL (150-450); RBC 3.13 x10E6/uL (3.77-5.28); RDW 16.4 % (11.7-15.4); WBC 8.3 x10E3/uL (3.4-10.8)
[2024-01-10 14:09] LABS: CANNABINOID, URINE Positive (Cutoff=20); CARBOXY THC (GC/MS) 142 ng/mL (Cutoff=10); CREATININE, URINE 83.9 mg/dL (20.0-300.0)
== END ==
LOC: M SFHCPLAZ 17:01
PROVIDERS: ATTEND Nurse Practitioner Family
DX: E55.9 Vitamin D deficiency, unspecified (principal); R63.6 Underweight; B20 Human immunodeficiency virus [HIV] disease; Z79.899 Other long term (current) drug therapy

== ENCOUNTER 2024-01-19 20:20 | Inpatient (IN) | payer MEDICARE ==
[~2024-01-19] VITALS: Ht 147.3 cm; Wt 32.1 kg
[2024-01-19] MEDS: CEFEPIME HCL 2 GM in D5W MINI-BAG PLUS 50 ML IV ONE (21:24)
[2024-01-19 21:25] LABS: VENOUS BASE EXCESS -10.7 (-2.0-2.0); VENOUS HCO3 15.6 MMOL/L (23.0-27.0); VENOUS O2 SATURATION 61.3 % (60.0-80.0); VENOUS PARTIAL PRESSURE O2 32.7 mmHg (30.0-50.0); VENOUS PH 7.254 UNITS (7.330-7.430); VENOUS STANDARD HCO3 15.4 MMOL/L; VENOUS TOTAL CO2 16.7 MMOL/L (24.0-28.0)
[2024-01-19] MEDS: methylPREDNISolone 125MG 2ML VIAL IV ONE (21:26)
[2024-01-19 21:28] LABS: HEMATOCRIT 34.6 % (36.0-47.0); HEMOGLOBIN 12.3 g/dl (12.0-15.5); MEAN CORPUSCULAR HEMOGLOBIN 40.2 pg (27.0-33.0); MEAN CORPUSCULAR HGB CONC 35.5 g/dl (32.0-36.5); MEAN CORPUSCULAR VOLUME 113.1 fl (80.0-96.0); PLATELET COUNT, AUTOMATED 176 10^3/uL (150-450); RED BLOOD COUNT 3.06 10^6/uL (4.00-5.40); WHITE BLOOD COUNT 18.8 10^3/uL (4.0-10.0)
[2024-01-19] MEDS: ACETAMINOPHEN TAB 650MG DOSE (2X325MG) PO ONE (21:29)
[2024-01-19 21:37] LABS: INR 1.24; PROTHROMBIN TIME 15.2 SECONDS (12.5-14.5)
[2024-01-19] MEDS: IPRATROPIUM 0.5MG/ALBUTEROL 2.5MG INH SOL UD 3ML (DUONEB) NEB PRN (21:51)
[2024-01-19 21:53] LABS: THYROID STIMULATING HORMONE 1.048 uIU/ML (0.55-4.78)
[2024-01-19 21:54] LABS: BILIRUBIN,DIRECT 0.1 MG/DL (<0.4); BILIRUBIN,TOTAL 0.3 MG/DL (0.3-1.2); CALCIUM LEVEL 9.6 MG/DL (8.3-10.6); CK-MB VALUE MASS 2.2 NG/ML (<3.6); CREATININE FOR GFR 1.83 MG/DL (0.55-1.30); GLOMERULAR FILTRATION RATE 29.6 (>45); MB/CK RELATIVE INDEX 2.85 (< OR =4); POTASSIUM SERUM 4.5 MMOL/L (3.5-5.1); TOTAL PROTEIN 7.7 G/DL (5.7-8.2)
[2024-01-19 22:16] LABS: LYMPHOCYTES 7 % (16-44); MONOCYTES 5 % (0-5); NEUTROPHILS 88 % (28-66); PLATELET ESTIMATE NORMAL (NORMAL)
[2024-01-19 23:20] LABS: CK-MB VALUE MASS 2.1 NG/ML (<3.6)
[2024-01-19] MEDS ORDERED: MED REC IN PROGRESS XX SCH (23:50)
[2024-01-19] MEDS ORDERED: OXYB10TA23 PO (23:50)
[2024-01-19] MEDS ORDERED: MUCI600T31 PO (23:50)
[2024-01-19] MEDS ORDERED: POTA1TAB23 PO (23:50)
[2024-01-20] VITALS (20 sets, daily range): BP systolic 131–161; BP diastolic 63–74; TEMP 97.6–99; O2SAT 90–100
[2024-01-20] MEDS ORDERED: MIRT-10 PO (00:05)
[2024-01-20] MEDS ORDERED: HYDR-3363 PO (00:05)
[2024-01-20] MEDS ORDERED: AMLO1TAB24 PO (00:05)
[2024-01-20] MEDS ORDERED: HOME MED LIST COMPLETE! XX SCH (00:05)
[2024-01-20] MEDS: NS 1,000 ML IV SCH (00:11)
[2024-01-20] MEDS: DOXYCYCLINE HYCLATE 100MG TABLET PO SCH (00:13)
[2024-01-20] MEDS: MIRTAZAPINE 15 MG TAB PO SCH (01:47)
[2024-01-20] MEDS: traZODone 100 MG TAB PO SCH (01:47)
[2024-01-20] MEDS: IPRATROPIUM 0.5MG/ALBUTEROL 2.5MG INH SOL UD 3ML (DUONEB) NEB SCH (02:49)
[2024-01-20 05:17] LABS: VENOUS BASE EXCESS -12.2 (-2.0-2.0); VENOUS HCO3 14.5 MMOL/L (23.0-27.0); VENOUS O2 SATURATION 98.2 % (60.0-80.0); VENOUS PARTIAL PRESSURE O2 125.6 mmHg (30.0-50.0); VENOUS PH 7.224 UNITS (7.330-7.430); VENOUS STANDARD HCO3 14.9 MMOL/L; VENOUS TOTAL CO2 15.6 MMOL/L (24.0-28.0)
[2024-01-20 05:41] LABS: HEMATOCRIT 28.6 % (36.0-47.0); HEMOGLOBIN 10.2 g/dl (12.0-15.5); MEAN CORPUSCULAR HEMOGLOBIN 40.6 pg (27.0-33.0); MEAN CORPUSCULAR HGB CONC 35.7 g/dl (32.0-36.5); MEAN CORPUSCULAR VOLUME 113.9 fl (80.0-96.0); PLATELET COUNT, AUTOMATED 163 10^3/uL (150-450); RED BLOOD COUNT 2.51 10^6/uL (4.00-5.40)
[2024-01-20] MEDS: HEPARIN SOD (PORCINE) 5000UNITS/ML 1ML VIAL/SYRINGE SC SCH (05:52)
[2024-01-20 06:01] LABS: PROCALCITONIN 1.58 ng/ml
[2024-01-20 06:03] LABS: ALBUMIN 2.5 G/DL (3.2-5.2); BILIRUBIN,TOTAL 0.2 MG/DL (0.3-1.2); CALCIUM LEVEL 9.3 MG/DL (8.3-10.6); CREATININE FOR GFR 2.11 MG/DL (0.55-1.30); GLOMERULAR FILTRATION RATE 25.1 (>45); MAGNESIUM LEVEL 2.1 MG/DL (1.8-2.4); POTASSIUM SERUM 3.1 MMOL/L (3.5-5.1); TOTAL PROTEIN 6.5 G/DL (5.7-8.2)
[2024-01-20] MEDS: POTASSIUM CHLORIDE 10MEQ SR TABLET PO ONE (06:39)
[2024-01-20] MEDS: BUDESONIDE 0.5 MG/2 ML INHALATION SUSPENSION NEB SCH (08:59)
[2024-01-20] MEDS ORDERED: NON-FORMULARY 1 EA EA PO SCH (09:00)
[2024-01-20] MEDS ORDERED: CLOPIDOGREL 75 MG TAB PO SCH (09:00)
[2024-01-20] MEDS: predniSONE 20 MG TAB PO SCH (09:14)
[2024-01-20] MEDS: SODIUM BICARBONATE 75 MEQ in NS 0.45% 1,000 ML IV SCH (09:14)
[2024-01-20] MEDS: oxyBUTYnin *DITROPAN XL* 5 MG TABCR PO SCH (09:14)
[2024-01-20] MEDS: guaiFENesin ER TABLET 600 MG TAB PO SCH (09:14)
[2024-01-20] MEDS: PANTOPRAZOLE 40MG TAB (PROTONIX) PO SCH (09:14)
[2024-01-20] MEDS: amLODIPine 5 MG TAB PO SCH (09:20)
[2024-01-20] MEDS: CEFEPIME HCL 1 GM in D5W 50 ML IV SCH (10:13)
[2024-01-20] MEDS: POTASSIUM CHLORIDE 10MEQ SR TABLET PO SCH (12:34)
[2024-01-20 13:26] LABS: CALCIUM LEVEL 9.4 MG/DL (8.3-10.6); CREATININE FOR GFR 2.14 MG/DL (0.55-1.30); GLOMERULAR FILTRATION RATE 24.7 (>45); POTASSIUM SERUM 3.8 MMOL/L (3.5-5.1)
[2024-01-20 15:22] LABS: VENOUS BASE EXCESS -9.6 (-2.0-2.0); VENOUS HCO3 15.7 MMOL/L (23.0-27.0); VENOUS PARTIAL PRESSURE CO2 32.2 mmHg (38.0-50.0); VENOUS PH 7.306 UNITS (7.330-7.430); VENOUS STANDARD HCO3 16.8 MMOL/L; VENOUS TOTAL CO2 16.7 MMOL/L (24.0-28.0)
[2024-01-20 15:52] LABS: CALCIUM LEVEL 9.7 MG/DL (8.3-10.6); CREATININE FOR GFR 2.13 MG/DL (0.55-1.30); GLOMERULAR FILTRATION RATE 24.8 (>45); POTASSIUM SERUM 3.9 MMOL/L (3.5-5.1)
[2024-01-20 15:57] LABS: HEMOGLOBIN A1c 4.8 % (4.0-6.0)
[2024-01-20] MEDS: ALBUTEROL 90 MCG/ACT 8GM HFA INHALER INH PRN (16:55)
[2024-01-20] MEDS: TRIUMEQ PO SCH (21:08)
[2024-01-20] MEDS: oxyCODONE 5MG TAB PO PRN (22:49)
[2024-01-21] VITALS (18 sets, daily range): BP systolic 118–152; BP diastolic 58–78; TEMP 97.6–98.2; O2SAT 85–100
[2024-01-21] MEDS ORDERED: UNRESOLVED PATIENT OWN MED ORDER XX SCH (00:01)
[2024-01-21 05:55] LABS: BASO % 0.2 % (0.0-1.0); HEMATOCRIT 25.1 % (36.0-47.0); HEMOGLOBIN 8.8 g/dl (12.0-15.5); LYMPH % 5.5 % (24.0-44.0); MEAN CORPUSCULAR HEMOGLOBIN 40.6 pg (27.0-33.0); MEAN CORPUSCULAR HGB CONC 35.1 g/dl (32.0-36.5); MONO # 1.3 10^3/uL (0.0-0.8); MONO % 7.3 % (2.0-8.0); NEUTROPHILS # 15.8 10^3/uL (1.5-8.5); NEUTROPHILS % 85.5 % (36.0-66.0); PLATELET COUNT, AUTOMATED 193 10^3/uL (150-450); RED BLOOD COUNT 2.17 10^6/uL (4.00-5.40); WHITE BLOOD COUNT 18.5 10^3/uL (4.0-10.0)
[2024-01-21 05:59] LABS: MEAN CORPUSCULAR VOLUME 115.7 fl (80.0-96.0)
[2024-01-21 06:21] LABS: CALCIUM LEVEL 9.1 MG/DL (8.3-10.6); CREATININE FOR GFR 1.87 MG/DL (0.55-1.30); GLOMERULAR FILTRATION RATE 28.9 (>45); MAGNESIUM LEVEL 1.9 MG/DL (1.8-2.4); PHOSPHORUS LEVEL 3.1 MG/DL (2.4-5.1); POTASSIUM SERUM 4.9 MMOL/L (3.5-5.1)
[2024-01-21] MEDS: CLOPIDOGREL 75 MG TAB PO SCH (08:32)
[2024-01-21] MEDS: PIPERACILLIN/TAZOBACTAM SOD 4.5 GM in D5W MINI-BAG PLUS 50 ML IV SCH (10:20)
[2024-01-21] MEDS: ACETAMINOPHEN TAB 650MG DOSE (2X325MG) PO PRN (22:16)
[2024-01-22] VITALS (12 sets, daily range): BP systolic 115–150; BP diastolic 57–82; TEMP 96.9–97.9; O2SAT 90–100
[2024-01-22 06:13] LABS: HEMATOCRIT 25.8 % (36.0-47.0); MEAN CORPUSCULAR HEMOGLOBIN 40.4 pg (27.0-33.0); MEAN CORPUSCULAR HGB CONC 34.9 g/dl (32.0-36.5); PLATELET COUNT, AUTOMATED 208 10^3/uL (150-450); RED BLOOD COUNT 2.23 10^6/uL (4.00-5.40); WHITE BLOOD COUNT 14.3 10^3/uL (4.0-10.0)
[2024-01-22 06:20] LABS: MEAN CORPUSCULAR VOLUME 115.7 fl (80.0-96.0)
[2024-01-22 06:31] LABS: ATYPICAL LYMPH 2 % (0-5); LYMPHOCYTES 10 % (16-44); MONOCYTES 6 % (0-5); NEUTROPHILS 82 % (28-66)
[2024-01-22 06:32] LABS: ANISOCYTOSIS 2+; PLATELET ESTIMATE NORMAL (NORMAL)
[2024-01-22 06:33] LABS: OVALOCYTES 1+; POIKILOCYTOSIS 1+
[2024-01-22 06:39] LABS: CALCIUM LEVEL 9.1 MG/DL (8.3-10.6); CREATININE FOR GFR 1.89 MG/DL (0.55-1.30); GLOMERULAR FILTRATION RATE 28.5 (>45); MAGNESIUM LEVEL 1.8 MG/DL (1.8-2.4); PHOSPHORUS LEVEL 3.2 MG/DL (2.4-5.1); POTASSIUM SERUM 4.5 MMOL/L (3.5-5.1)
[2024-01-22 06:51] LABS: PROCALCITONIN 0.71 ng/ml
[2024-01-22] MEDS: SODIUM BICARBONATE 325 MG TAB PO SCH (09:38)
[2024-01-23 01:13] VITALS: BP 128/73; TEMP 97; O2SAT 92
[2024-01-23 04:03] VITALS: BP 127/70; TEMP 98.1; O2SAT 95
[2024-01-23 06:54] LABS: CREATININE FOR GFR 1.81 MG/DL (0.55-1.30); MAGNESIUM LEVEL 1.7 MG/DL (1.8-2.4); PHOSPHORUS LEVEL 3.4 MG/DL (2.4-5.1); POTASSIUM SERUM 4.4 MMOL/L (3.5-5.1)
[2024-01-23 07:17] LABS: BASO % 0.1 % (0.0-1.0); HEMATOCRIT 29.2 % (36.0-47.0); HEMOGLOBIN 10.1 g/dl (12.0-15.5); LYMPH # 0.7 10^3/uL (1.5-5.0); LYMPH % 7.3 % (24.0-44.0); MEAN CORPUSCULAR HEMOGLOBIN 39.9 pg (27.0-33.0); MEAN CORPUSCULAR HGB CONC 34.6 g/dl (32.0-36.5); MONO # 0.6 10^3/uL (0.0-0.8); MONO % 5.8 % (2.0-8.0); NEUTROPHILS # 8.7 10^3/uL (1.5-8.5); NEUTROPHILS % 85.7 % (36.0-66.0); PLATELET COUNT, AUTOMATED 237 10^3/uL (150-450); RED BLOOD COUNT 2.53 10^6/uL (4.00-5.40); WHITE BLOOD COUNT 10.2 10^3/uL (4.0-10.0)
[2024-01-23 07:20] LABS: MEAN CORPUSCULAR VOLUME 115.4 fl (80.0-96.0)
[2024-01-23] MEDS ORDERED: VARIBAR PUDDING 40% w/v 230ML TUBE As Ordered ONE (10:58)
[2024-01-23] MEDS ORDERED: VARIBAR NECTAR 40% w/v 240ML SUSP BTL As Ordered ONE (10:58)
[2024-01-23] MEDS ORDERED: BARIUM SULFATE 700 MG TABLET (E-Z-DISK) As Ordered ONE (10:58)
[2024-01-23] MEDS ORDERED: E-Z-PAQUE 96% w/w SUSP 176GM BTL As Ordered ONE (10:58)
[2024-01-23] MEDS: MAGNESIUM OXIDE 400MG TAB (MAG-OX) PO ONE (11:03)
[2024-01-23 12:00] VITALS: BP 140/69; TEMP 97.7; O2SAT 94
[2024-01-23 14:04] LABS: B12 DEFIECIENCY 829 pg/mL (232-1245)
[2024-01-23 19:54] VITALS: BP 138/68; TEMP 98.2; O2SAT 100
[2024-01-24 00:02] VITALS: BP 143/74; TEMP 98.4; O2SAT 97
[2024-01-24 03:58] VITALS: BP 142/74; TEMP 97.9; O2SAT 96
[2024-01-24 06:29] LABS: BASO % 0.1 % (0.0-1.0); HEMATOCRIT 30.2 % (36.0-47.0); HEMOGLOBIN 10.6 g/dl (12.0-15.5); LYMPH % 14.7 % (24.0-44.0); MEAN CORPUSCULAR HEMOGLOBIN 39.7 pg (27.0-33.0); MEAN CORPUSCULAR HGB CONC 35.1 g/dl (32.0-36.5); MEAN CORPUSCULAR VOLUME 113.1 fl (80.0-96.0); MONO # 1.5 10^3/uL (0.0-0.8); NEUTROPHILS # 9.9 10^3/uL (1.5-8.5); NEUTROPHILS % 73.2 % (36.0-66.0); PLATELET COUNT, AUTOMATED 234 10^3/uL (150-450); RED BLOOD COUNT 2.67 10^6/uL (4.00-5.40); WHITE BLOOD COUNT 13.5 10^3/uL (4.0-10.0)
[2024-01-24 06:47] LABS: CREATININE FOR GFR 2.06 MG/DL (0.55-1.30); GLOMERULAR FILTRATION RATE 25.8 (>45); MAGNESIUM LEVEL 1.7 MG/DL (1.8-2.4); PHOSPHORUS LEVEL 3.6 MG/DL (2.4-5.1); POTASSIUM SERUM 4.3 MMOL/L (3.5-5.1)
[2024-01-24] MEDS: MAGNESIUM OXIDE 400MG TAB (MAG-OX) PO SCH (08:33)
[2024-01-24 08:34] VITALS: BP 145/76
[2024-01-24] MEDS ORDERED: MAGN400T2 PO (12:36)
[2024-01-24] MEDS ORDERED: PRED10TA2 PO (12:36)
[2024-01-24] MEDS ORDERED: PRED20TA PO (12:36)
[2024-01-24] MEDS ORDERED: AMOX875T2 PO (12:36)
[2024-01-24] MEDS ORDERED: DOXY100C82 PO (12:36)
[2024-01-24] MEDS ORDERED: DOXY100T PO (12:36)
[2024-01-25] MEDS ORDERED: predniSONE 20 MG TAB PO SCH (09:00)
[2024-01-25 19:09] LABS: URINE STREP PNEUMONIAE ANTIGEN NOT DETECTED (NOT DETECT)
== END 2024-01-24 13:32 | disposition home health service (06) | DRG 974 ==
LOC: M ED 20:20 → M ED INP 23:50 → EEVIPCON 23:50 → M PCU 01-20 02:26 → M MSPAV 01-22 21:19
PROVIDERS: ADMIT Preventive Medicine Undersea and Hyperbaric Medicine; ATTEND Student in an Organized Health Care Education/Training Program
DX: J18.9 Pneumonia, unspecified organism (principal); B20 Human immunodeficiency virus [HIV] disease; E43 Unspecified severe protein-calorie malnutrition; N18.4 Chronic kidney disease, stage 4 (severe); E87.1 Hypo-osmolality and hyponatremia; N17.9 Acute kidney failure, unspecified; R64 Cachexia; Z68.1 Body mass index [BMI] 19.9 or less, adult; J44.1 Chronic obstructive pulmonary disease with (acute) exacerbation; J45.901 Unspecified asthma with (acute) exacerbation; J44.0 Chronic obstructive pulmonary disease with (acute) lower respiratory infection; E87.22 Chronic metabolic acidosis; E87.21 Acute metabolic acidosis; I73.9 Peripheral vascular disease, unspecified; F39 Unspecified mood [affective] disorder; R06.03 Acute respiratory distress; E87.6 Hypokalemia; I12.9 Hypertensive chronic kidney disease with stage 1 through stage 4 chronic kidney disease, or unspecified chronic kidney disease; K21.9 Gastro-esophageal reflux disease without esophagitis; Z79.899 Other long term (current) drug therapy; G89.29 Other chronic pain; D53.1 Other megaloblastic anemias, not elsewhere classified

== ENCOUNTER → 2024-01-30 | Outpatient (CLI) | payer MEDICARE ==
[~2024-01-30] MED LIST changes: +AMLO1TAB24 PO; +AMOX875T2 PO; +DOXY100C82 PO; +DOXY100T PO; +HYDR-3363 PO; +MAGN400T2 PO; +MIRT-10 PO; +MUCI600T31 PO; +OXYB10TA23 PO; +POTA1TAB23 PO; +PRED10TA2 PO; +PRED20TA PO
[2024-01-30 16:07] LABS: ALBUMIN 2.9 G/DL (3.2-5.2); BILIRUBIN,TOTAL 0.3 MG/DL (0.3-1.2); CALCIUM LEVEL 8.9 MG/DL (8.3-10.6); CREATININE FOR GFR 1.51 MG/DL (0.55-1.30); GLOMERULAR FILTRATION RATE 36.9 (>45); POTASSIUM SERUM 4.9 MMOL/L (3.5-5.1); TOTAL PROTEIN 6.4 G/DL (5.7-8.2)
[2024-01-31 10:11] LABS: % CD4+ LYMPHS 24.2 % (30.8-58.5); ABSOLUTE CD4 HELPER 266 /uL (359-1519); BASOPHILS 0 % (Not Estab.); EOSINOPHILS 0 % (Not Estab.); HGB 12.4 g/dL (11.1-15.9); LYMPHOCYTES 7 % (Not Estab.); LYMPHOCYTES ABSOLUTE 1.1 x10E3/uL (0.7-3.1); MCH 39.6 pg (26.6-33.0); MCHC 34.4 g/dL (31.5-35.7); MCV 115 fL (79-97); MONOCYTES 6 % (Not Estab.); MONOCYTES ABSOLUTE 0.9 x10E3/uL (0.1-0.9); NEUTROPHILS 85 % (Not Estab.); NEUTROPHILS ABSOLUTE 13.2 x10E3/uL (1.4-7.0); PLT 200 x10E3/uL (150-450); RBC 3.13 x10E6/uL (3.77-5.28); RDW 14.2 % (11.7-15.4); WBC 15.5 x10E3/uL (3.4-10.8)
[2024-01-31 14:27] LABS: HIV-1 RNA PCR QUANT 2 NOT DETECTED copies/mL (NOT DETECTED); HIV-1 RNA PCR QUANT 3 NOT DETECTED (NOT DETECTED)
== END ==
LOC: M PLALAB 13:19
PROVIDERS: ATTEND Internal Medicine Infectious Disease
DX: B20 Human immunodeficiency virus [HIV] disease (principal)

== ENCOUNTER → 2024-02-05 | Outpatient (REF) | payer MEDICARE | LOC: M SFHCPLAZ 12:29 | PROVIDERS: ATTEND Nurse Practitioner Family | DX: Z79.899 Other long term (current) drug therapy (principal) ==

== ENCOUNTER → 2024-02-15 | Outpatient (CLI) | payer MEDICARE | LOC: M RAD 15:03 | PROVIDERS: ATTEND Student in an Organized Health Care Education/Training Program | DX: R10.84 Generalized abdominal pain (principal) ==

== ENCOUNTER → 2024-02-22 | Outpatient (CLI) | payer MEDICARE | LOC: M RAD 09:26 | PROVIDERS: ATTEND Physician Assistant | DX: Z12.2 Encounter for screening for malignant neoplasm of respiratory organs (principal); F17.218 Nicotine dependence, cigarettes, with other nicotine-induced disorders; R91.1 Solitary pulmonary nodule; J43.9 Emphysema, unspecified; J47.9 Bronchiectasis, uncomplicated ==

== ENCOUNTER → 2024-02-28 | Outpatient (CLI) | payer MEDICARE | LOC: M RAD 09:16 | PROVIDERS: ATTEND Student in an Organized Health Care Education/Training Program | DX: R10.84 Generalized abdominal pain (principal); Z90.49 Acquired absence of other specified parts of digestive tract; Z95.828 Presence of other vascular implants and grafts ==

== ENCOUNTER 2024-04-03 08:43 | Day surgery (SDC) | payer MEDICARE ==
[~2024-04-03] VITALS: Ht 147.3 cm; Wt 33.6 kg
[2024-04-03] MEDS: EPINEPHrine 1MG/10ML SYRINGE 1.5IN As Ordered ONE (07:17)
[2024-04-03] MEDS: LIDOCAINE 1% SDV 30ML VIAL As Ordered ONE (07:17)
[2024-04-03] MEDS: LIDOCAINE VISCOUS 2% SOLN 15ML UDC As Ordered ONE (07:17)
[2024-04-03] MEDS: LIDOCAINE 4% TOPICAL SOLN 50 ML BTL As Ordered ONE (07:17)
[~2024-04-03 08:43] MED LIST changes: +BIKT1TAB PO; +SODI650T PO
[2024-04-03] MEDS ORDERED: SUGAMMADEX SODIUM 500 MG/5 ML VIAL (BRIDION) As Ordered ONE (09:14)
[2024-04-03] MEDS ORDERED: ROCURONIUM BROMIDE 50MG/5ML VIAL As Ordered ONE (09:14)
[2024-04-03] MEDS ORDERED: GLYCOPYRROLATE INJ 0.2 MG/ML 2 ML VIAL As Ordered ONE (09:14)
[2024-04-03] MEDS ORDERED: propofoL 200 MG/20 ML VIAL As Ordered ONE (09:14)
[2024-04-03] MEDS ORDERED: fentaNYL 100 MCG/2 ML INJECTION As Ordered ONE (09:14)
[2024-04-03] MEDS ORDERED: ONDANSETRON 4MG 2ML VIAL As Ordered ONE (09:14)
[2024-04-03] MEDS ORDERED: MIDAZOLAM INJ 2MG/2ML VIAL As Ordered ONE (09:15)
[2024-04-03] MEDS ORDERED: LR 1,000 ML IV SCH ×2 (09:30→10:55)
[2024-04-03] MEDS: CETACAINE SPRAY 5GM As Ordered ONE (10:40)
[2024-04-03] MEDS ORDERED: fentaNYL 100 MCG/2 ML INJECTION IV PRN (10:55)
[2024-04-03] MEDS ORDERED: HYDROMORPHONE HCL 0.5 MG/ 0.5 ML SYRINGE IV PRN (10:55)
[2024-04-03] MEDS ORDERED: ONDANSETRON 4MG 2ML VIAL IV PRN (10:55)
[2024-04-03] MEDS ORDERED: oxyCODONE 5MG TAB PO PRN (10:55)
[2024-04-03 12:15] VITALS: BP 134/63; TEMP 97.8; O2SAT 99
== END 2024-04-03 12:34 | disposition home or self-care (01) ==
LOC: M SDC 08:43
PROVIDERS: ATTEND Internal Medicine Pulmonary Disease
DX: J43.1 Panlobular emphysema (principal); J44.9 Chronic obstructive pulmonary disease, unspecified; I73.9 Peripheral vascular disease, unspecified; I10 Essential (primary) hypertension; F17.218 Nicotine dependence, cigarettes, with other nicotine-induced disorders; F41.9 Anxiety disorder, unspecified; F32.A Depression, unspecified; Z79.02 Long term (current) use of antithrombotics/antiplatelets; Z79.899 Other long term (current) drug therapy
CPT/HCPCS: 31624; 71045; 87070; 87077; 87102; 87116; 87186; 87205; 87206; 88108; 88313; J1100; J1596; J2250; J2405; J3010

== ENCOUNTER → 2024-10-04 | Outpatient (REF) | payer MEDICARE ==
[~2024-10-04] MED LIST changes: -ADV100INH INH; +ADVA1AER8 INH; +ALBU2.5V10 INH; +FLUT1BLS8 INH; +HYDR-4517 PO; +TRAZ-257 PO
[2024-10-04 17:51] LABS: ALBUMIN 3.8 G/DL (3.2-5.2); BILIRUBIN,TOTAL 0.2 MG/DL (0.3-1.2); CALCIUM LEVEL 8.6 MG/DL (8.3-10.6); CHOLESTEROL RISK RATIO 2.51 (<5); CREATININE FOR GFR 2.28 MG/DL (0.55-1.30); GLOMERULAR FILTRATION RATE 22.9 (>45); HDL CHOLESTEROL 44.5 MG/DL (>40); LDL CHOLESTEROL 47.9 MG/DL (<100); NON-HDL-C 67.5 MG/DL; POTASSIUM SERUM 4.1 MMOL/L (3.5-5.1)
[2024-10-04 17:52] LABS: THYROID STIMULATING HORMONE 1.02 uIU/ML (0.55-4.78)
[2024-10-04 17:53] LABS: TOTAL 25(OH) VITAMIN D 48.2 NG/ML (20.0-100.0)
== END ==
LOC: M LAB REF 16:22
PROVIDERS: ATTEND Physician Assistant
DX: B20 Human immunodeficiency virus [HIV] disease (principal); E55.9 Vitamin D deficiency, unspecified; J44.9 Chronic obstructive pulmonary disease, unspecified; I73.9 Peripheral vascular disease, unspecified; Z79.899 Other long term (current) drug therapy

== ENCOUNTER → 2024-10-31 | Outpatient (CLI) | payer MEDICARE ==
[~2024-10-31] MED LIST changes: +DOXY-442 PO; -DOXY100C82 PO
== END ==
LOC: M PLAIMG 13:25
PROVIDERS: ATTEND Physician Assistant Medical
DX: R10.84 Generalized abdominal pain (principal)

== ENCOUNTER → 2024-11-11 | Outpatient (CLI) | payer MEDICARE ==
[~2024-11-11] MED LIST changes: +E-Z-GAS II EFFERVESCENT PACKET (SODIUM BICARB./CITRIC ACID/SIMETHICONE) As Ordered ONE; +E-Z-HD 98% w/w 340GM SUSP BTL As Ordered ONE; +E-Z-PAQUE 96% w/w SUSP 176GM BTL As Ordered ONE
== END ==
LOC: M RAD 10:21
PROVIDERS: ATTEND Physician Assistant Medical
DX: R13.10 Dysphagia, unspecified (principal); K21.9 Gastro-esophageal reflux disease without esophagitis; K22.89 Other specified disease of esophagus; Q39.4 Esophageal web

== ENCOUNTER 2024-12-09 11:51 | Day surgery (SDC) | payer MEDICARE ==
[~2024-12-09] VITALS: Ht 148.6 cm; Wt 34.4 kg
[~2024-12-09 11:51] MED LIST changes: +D 1010004 PO; +DULO1CAP5 PO; -E-Z-GAS II EFFERVESCENT PACKET (SODIUM BICARB./CITRIC ACID/SIMETHICONE) As Ordered ONE; -E-Z-HD 98% w/w 340GM SUSP BTL As Ordered ONE; -E-Z-PAQUE 96% w/w SUSP 176GM BTL As Ordered ONE; +IPRA6SP; +LIDOCAINE 2% 100MG/5ML SDV (FOR ANES.) As Ordered ONE; +POTA10809 PO; +propofoL 200 MG/20 ML VIAL As Ordered ONE
[2024-12-09 13:58] VITALS: BP 131/72; O2SAT 99
== END 2024-12-09 14:00 | disposition home or self-care (01) ==
LOC: M OPP 11:51
PROVIDERS: ATTEND Internal Medicine Gastroenterology
DX: R93.3 Abnormal findings on diagnostic imaging of other parts of digestive tract (principal); R13.10 Dysphagia, unspecified; B20 Human immunodeficiency virus [HIV] disease; Z79.891 Long term (current) use of opiate analgesic; Z79.51 Long term (current) use of inhaled steroids; Z79.899 Other long term (current) drug therapy; J44.9 Chronic obstructive pulmonary disease, unspecified; F17.210 Nicotine dependence, cigarettes, uncomplicated

== ENCOUNTER → 2025-02-18 | Outpatient (CLI) | payer MEDICARE ==
[~2025-02-18] MED LIST changes: -LIDOCAINE 2% 100MG/5ML SDV (FOR ANES.) As Ordered ONE; -propofoL 200 MG/20 ML VIAL As Ordered ONE
== END ==
LOC: M PLAIMG 10:31
PROVIDERS: ATTEND Internal Medicine Pulmonary Disease
DX: J47.9 Bronchiectasis, uncomplicated (principal)

== ENCOUNTER → 2025-02-19 | Outpatient (REF) | payer MEDICARE | LOC: M LAB REF 12:57 | PROVIDERS: ATTEND Internal Medicine Pulmonary Disease | DX: R05.9 Cough, unspecified (principal) ==

== ENCOUNTER → 2025-03-14 | Outpatient (CLI) | payer MEDICARE | LOC: M PLAIMG 09:34 | PROVIDERS: ATTEND Internal Medicine Pulmonary Disease | DX: J47.9 Bronchiectasis, uncomplicated (principal); J84.10 Pulmonary fibrosis, unspecified; J44.9 Chronic obstructive pulmonary disease, unspecified ==

== ENCOUNTER 2025-06-08 13:34 | Inpatient (IN) | payer MEDICARE ==
[~2025-06-08] VITALS: Ht 147.3 cm; Wt 34.9 kg
[2025-06-08 14:50] LABS: BASO # 0.0 10^3/uL (0.0-0.2); BASO % 0.2 % (0.0-1.0); EOS # 0.0 10^3/uL (0.0-0.5); EOS % 0.1 % (0.0-3.0); LYMPH # 1.4 10^3/uL (1.5-5.0); LYMPH % 9.6 % (24.0-44.0); MONO # 2.1 10^3/uL (0.0-0.8); MONO % 14.1 % (2.0-8.0); NEUTROPHILS # 11.2 10^3/uL (1.5-8.5); NEUTROPHILS % 75.5 % (36.0-66.0); PLATELET COUNT, AUTOMATED 213 10^3/uL (150-450)
[2025-06-08] MEDS: IPRATROPIUM 0.5 MG/ALBUTEROL 2.5 MG INH SOL UD 3 ML NEB PRN (15:05)
[2025-06-08 15:10] LABS: ALT/SGPT 27.0 U/L (7.0-40); AST/SGOT 41.0 U/L (<34); CALCIUM LEVEL 8.7 MG/DL (8.3-10.6); CARBON DIOXIDE LEVEL 26.0 MMOL/L (20-31); CHLORIDE LEVEL 101.0 MMOL/L (98-107); CREATININE FOR GFR 1.76 MG/DL (0.55-1.30); GLOMERULAR FILTRATION RATE 31.7 (>45); POTASSIUM SERUM 4.1 MMOL/L (3.5-5.1); SODIUM LEVEL 134.0 MMOL/L (136-145)
[2025-06-08 15:13] LABS: THYROXINE (T4) 8.0 UG/DL (4.5-10.9)
[2025-06-08] MEDS ORDERED: ISOVUE-370 76% 100 ML VIAL As Ordered ONE (15:33)
[2025-06-08] MEDS: cefTRIAXone SOD 1 GM in DEXTROSE 5% (D5W) ADV/MINI-BAG 50 ML IV ONE (16:03)
[2025-06-08] MEDS ORDERED: cefTRIAXone SOD 1 GM in DEXTROSE 5% (D5W) ADV/MINI-BAG 50 ML IV ONE (16:20)
[2025-06-08] MEDS ORDERED: AZITHROMYCIN INJ 500 MG, VIAL MATE ADAPTER 1 EACH in D5W 250 ML IV ONE (16:20)
[2025-06-08] MEDS: AZITHROMYCIN INJ 500 MG, VIAL MATE ADAPTER 1 EACH in D5W 250 ML IV ONE (16:45)
[2025-06-08] MEDS: MORPHINE 4 MG/ML 1 ML VIAL IV ONE (17:48)
[2025-06-08] MEDS: IPRATROPIUM 0.5 MG/ALBUTEROL 2.5 MG INH SOL UD 3 ML NEB SCH (20:11)
[2025-06-08] MEDS: DOXYCYCLINE HYCLATE 100 MG in DEXTROSE 5% (D5W) MINI-BAG PLU 100 ML IV SCH (21:30)
[2025-06-08] MEDS: NS (Normal Saline) 0.9% 1,000 ML IV SCH (21:30)
[2025-06-08 22:00] VITALS: BP 133/68; TEMP 97.4; O2SAT 97
[2025-06-08 22:21] VITALS: O2SAT 95
[2025-06-08 23:38] VITALS: O2SAT 87
[2025-06-08 23:40] VITALS: O2SAT 92
[2025-06-09] MEDS ORDERED: TIZA10TA PO (00:22)
[2025-06-09] MEDS ORDERED: FAMO1TAB11 PO (00:22)
[2025-06-09] MEDS ORDERED: POTA-226 PO (00:22)
[2025-06-09] MEDS ORDERED: ALBU8.5H INH (00:22)
[2025-06-09] MEDS ORDERED: HOME MED LIST COMPLETE! XX SCH (00:25)
[2025-06-09] MEDS: POTASSIUM CITRATE 1080MG (10MEQ) TAB PO SCH (01:30)
[2025-06-09] MEDS: MIRTAZAPINE 15 MG TAB PO SCH (01:30)
[2025-06-09] MEDS: traZODone 100 MG TAB PO SCH (01:31)
[2025-06-09 03:56] VITALS: BP 127/71; TEMP 97.8; O2SAT 100
[2025-06-09 05:59] LABS: PLATELET COUNT, AUTOMATED 202 10^3/uL (150-450)
[2025-06-09 06:20] LABS: ALT/SGPT 29 U/L (7.0-40); AST/SGOT 46 U/L (<34); CALCIUM LEVEL 8.3 MG/DL (8.3-10.6); CARBON DIOXIDE LEVEL 22 MMOL/L (20-31); CHLORIDE LEVEL 106 MMOL/L (98-107); CREATININE FOR GFR 1.78 MG/DL (0.55-1.30); GLOMERULAR FILTRATION RATE 31.3 (>45); MAGNESIUM LEVEL 2.1 MG/DL (1.8-2.4); POTASSIUM SERUM 3.7 MMOL/L (3.5-5.1); SODIUM LEVEL 138 MMOL/L (136-145)
[2025-06-09] MEDS: cefTRIAXone SOD 2 GM in DEXTROSE 5% (D5W) ADV/MINI-BAG 50 ML IV SCH (08:16)
[2025-06-09] MEDS: ENOXAPARIN 30 MG/0.3 ML SYRINGE (J1650 PER 10MG) SC SCH (08:19)
[2025-06-09] MEDS: CLOPIDOGREL 75 MG TAB PO SCH (08:20)
[2025-06-09] MEDS: PANTOPRAZOLE 40MG TAB PO SCH (08:20)
[2025-06-09] MEDS: amLODIPine 5 MG TAB PO SCH (08:21)
[2025-06-09 11:47] VITALS: BP 113/57; TEMP 97.9; O2SAT 94
[2025-06-09 20:00] VITALS: BP 116/56; TEMP 97.4; O2SAT 93
[2025-06-09] MEDS: DOXYCYCLINE HYCLATE 100 MG TABLET PO SCH (21:05)
[2025-06-09] MEDS ORDERED: ACETAMINOPHEN 325 MG TAB PO PRN ×2 (21:10)
[2025-06-10 04:00] VITALS: BP 107/53; TEMP 97.3; O2SAT 93
[2025-06-10 06:50] LABS: ALT/SGPT 28 U/L (7.0-40); AST/SGOT 26 U/L (<34); BASO # 0.0 10^3/uL (0.0-0.2); BASO % 0.1 % (0.0-1.0); CALCIUM LEVEL 8.8 MG/DL (8.3-10.6); CARBON DIOXIDE LEVEL 22 MMOL/L (20-31); CHLORIDE LEVEL 113 MMOL/L (98-107); CREATININE FOR GFR 1.67 MG/DL (0.55-1.30); EOS # 0.0 10^3/uL (0.0-0.5); EOS % 0.0 % (0.0-3.0); GLOMERULAR FILTRATION RATE 33.8 (>45); LYMPH # 1.2 10^3/uL (1.5-5.0); LYMPH % 5.3 % (24.0-44.0); MONO # 1.9 10^3/uL (0.0-0.8); MONO % 8.1 % (2.0-8.0); NEUTROPHILS # 20.0 10^3/uL (1.5-8.5); NEUTROPHILS % 85.2 % (36.0-66.0); PLATELET COUNT, AUTOMATED 218 10^3/uL (150-450); POTASSIUM SERUM 3.9 MMOL/L (3.5-5.1); SODIUM LEVEL 145 MMOL/L (136-145)
[2025-06-10 08:42] VITALS: BP 107/53
[2025-06-10] MEDS: FAMOTIDINE 20 MG TAB PO SCH (08:42)
[2025-06-10] MEDS ORDERED: DOXY-440 PO (11:29)
[2025-06-10] MEDS ORDERED: PRED10TA2 PO (11:29)
[2025-06-10] MEDS ORDERED: POTA-226 PO (11:29)
[2025-06-10] MEDS ORDERED: CEFD1CAP9 PO (11:29)
[2025-06-10 12:00] VITALS: BP 119/56; TEMP 98.9; O2SAT 95
[2025-06-10] MEDS: FLUZONE HIGH DOSE (65+) 0.5 ML SYRINGE (25-26) IM.IMMUN ONE (12:52)
== END 2025-06-10 13:43 | disposition home or self-care (01) | DRG 190 ==
LOC: M ED 13:34 → M ED INP 18:38 → M MS4PR 21:48
PROVIDERS: ADMIT Internal Medicine; ATTEND Internal Medicine
DX: J44.1 Chronic obstructive pulmonary disease with (acute) exacerbation (principal); J18.9 Pneumonia, unspecified organism; B20 Human immunodeficiency virus [HIV] disease; N18.9 Chronic kidney disease, unspecified; F17.200 Nicotine dependence, unspecified, uncomplicated; Z79.899 Other long term (current) drug therapy; I12.9 Hypertensive chronic kidney disease with stage 1 through stage 4 chronic kidney disease, or unspecified chronic kidney disease; F41.9 Anxiety disorder, unspecified; F32.A Depression, unspecified

== ENCOUNTER 2025-07-17 13:19 | Inpatient (IN) | payer MEDICARE ==
[~2025-07-17] VITALS: Ht 147.3 cm; Wt 36.1 kg
[~2025-07-17 13:19] MED LIST changes: +CEFD1CAP9 PO; +DOXY-440 PO; +FAMO1TAB11 PO; +POTA-226 PO; +TIZA10TA PO
[2025-07-17 14:08] LABS: VENOUS BASE EXCESS -10.0 (-2.0-2.0); VENOUS HCO3 16.6 MMOL/L (23.0-27.0); VENOUS O2 SATURATION 80.9 % (60.0-80.0); VENOUS PARTIAL PRESSURE CO2 39.0 mmHg (38.0-50.0); VENOUS PARTIAL PRESSURE O2 49.1 mmHg (30.0-50.0); VENOUS PH 7.247 UNITS (7.330-7.430); VENOUS STANDARD HCO3 16.4 MMOL/L; VENOUS TOTAL CO2 17.8 MMOL/L (24.0-28.0)
[2025-07-17 14:14] LABS: BASO # 0.0 10^3/uL (0.0-0.2); BASO % 0.3 % (0.0-1.0); EOS # 0.0 10^3/uL (0.0-0.5); EOS % 0.1 % (0.0-3.0); LYMPH # 1.3 10^3/uL (1.5-5.0); LYMPH % 13.5 % (24.0-44.0); MONO # 1.4 10^3/uL (0.0-0.8); MONO % 14.8 % (2.0-8.0); NEUTROPHILS # 6.9 10^3/uL (1.5-8.5); NEUTROPHILS % 70.9 % (36.0-66.0); PLATELET COUNT, AUTOMATED 159 10^3/uL (150-450)
[2025-07-17 14:40] LABS: THYROXINE (T4) 8.3 UG/DL (4.5-10.9)
[2025-07-17 15:07] LABS: ALT/SGPT 18.0 U/L (7.0-40); AST/SGOT 53.0 U/L (<34); CALCIUM LEVEL 9.0 MG/DL (8.3-10.6); CARBON DIOXIDE LEVEL 19.0 MMOL/L (20-31); CHLORIDE LEVEL 112.0 MMOL/L (98-107); CREATININE FOR GFR 1.81 MG/DL (0.55-1.30); GLOMERULAR FILTRATION RATE 30.7 (>45); POTASSIUM SERUM 4.9 MMOL/L (3.5-5.1); SODIUM LEVEL 139.0 MMOL/L (136-145)
[2025-07-17] MEDS: IPRATROPIUM 0.5 MG/ALBUTEROL 2.5 MG INH SOL UD 3 ML NEB PRN (16:07)
[2025-07-17] MEDS ORDERED: ACETAMINOPHEN 325 MG TAB PO PRN (17:25)
[2025-07-17] MEDS ORDERED: ALBUTEROL SULFATE 2.5 MG/0.5 ML INH CONCENTRATE NEB SOLN NEB PRN (17:25)
[2025-07-17] MEDS ORDERED: POTA-150 PO (17:29)
[2025-07-17] MEDS ORDERED: HOME MED LIST COMPLETE! XX SCH (17:30)
[2025-07-17] MEDS: NICOTINE 21 MG/24 HR 1 EA TRANSDERMAL TD SCH (17:55)
[2025-07-17] MEDS ORDERED: PILL CUTTER 1 EACH XX PRN (18:25)
[2025-07-17] MEDS: AZITHROMYCIN 250 MG TABLET PO SCH (20:24)
[2025-07-17] MEDS: MIRTAZAPINE 15 MG TAB PO SCH (20:24)
[2025-07-17] MEDS: traZODone 100 MG TAB PO SCH (20:24)
[2025-07-17] MEDS: HEPARIN SOD 5000 UNITS/ML 1 ML VIAL/SYRINGE SQ SCH (20:27)
[2025-07-17] MEDS: ADVAIR HFA 230/21 MCG INHALER INH SCH (20:49)
[2025-07-17] MEDS: IPRATROPIUM 0.5 MG/ALBUTEROL 2.5 MG INH SOL UD 3 ML NEB SCH (20:49)
[2025-07-17 23:54] VITALS: BP 123/69; TEMP 98.1; O2SAT 94
[2025-07-18 06:35] VITALS: BP 112/56; TEMP 99.2; O2SAT 96
[2025-07-18 06:45] LABS: PLATELET COUNT, AUTOMATED 158 10^3/uL (150-450)
[2025-07-18 06:59] LABS: ALT/SGPT 16.0 U/L (7.0-40); AST/SGOT 16.0 U/L (<34); CALCIUM LEVEL 9.0 MG/DL (8.3-10.6); CARBON DIOXIDE LEVEL 19.0 MMOL/L (20-31); CHLORIDE LEVEL 111.0 MMOL/L (98-107); CREATININE FOR GFR 1.9 MG/DL (0.55-1.30); GLOMERULAR FILTRATION RATE 28.9 (>45); POTASSIUM SERUM 4.1 MMOL/L (3.5-5.1); SODIUM LEVEL 138.0 MMOL/L (136-145)
[2025-07-18] MEDS ORDERED: LEVALBUTEROL 1.25 MG 0.5ML CONCENTRATE NEB NEB PRN (07:15)
[2025-07-18] MEDS: TIOTROPIUM BROM 2.5MCG/ACTUATION 4GM INH INH SCH (07:43)
[2025-07-18] MEDS: LEVALBUTEROL 1.25 MG 0.5ML CONCENTRATE NEB NEB SCH (07:43)
[2025-07-18] MEDS ORDERED: ISOVUE-370 76% 100 ML VIAL As Ordered ONE (08:38)
[2025-07-18] MEDS ORDERED: ENOXAPARIN 40 MG/0.4 ML SYRINGE (J1650 PER 10MG) SC SCH (09:00)
[2025-07-18] MEDS: NS (Normal Saline) 0.9% 1,000 ML IV SCH (09:20)
[2025-07-18] MEDS: BIKTARVY PO SCH (09:20)
[2025-07-18] MEDS: CLOPIDOGREL 75 MG TAB PO SCH (09:21)
[2025-07-18] MEDS: OMEPRAZOLE 20MG CAP PO SCH (09:22)
[2025-07-18] MEDS: POTASSIUM CHLORIDE 10MEQ SR TABLET PO SCH (09:22)
[2025-07-18] MEDS: FAMOTIDINE 20 MG TAB PO SCH (09:22)
[2025-07-18] MEDS: predniSONE 20 MG TAB PO SCH (09:22)
[2025-07-18] MEDS: amLODIPine 5 MG TAB PO SCH (09:33)
[2025-07-18] MEDS: NYSTATIN 500,000 UNITS/5 ML SUSP UDC SS SCH (12:32)
[2025-07-18 16:02] VITALS: BP 132/63; TEMP 98; O2SAT 94
[2025-07-18 19:41] VITALS: BP 136/59; TEMP 99; O2SAT 95
[2025-07-19 04:47] VITALS: BP 127/59; TEMP 98.5; O2SAT 96
[2025-07-19 07:16] LABS: PLATELET COUNT, AUTOMATED 157 10^3/uL (150-450)
[2025-07-19 07:49] LABS: ALT/SGPT 10 U/L (7.0-40); AST/SGOT 10 U/L (<34); CALCIUM LEVEL 8.2 MG/DL (8.3-10.6); CARBON DIOXIDE LEVEL 20 MMOL/L (20-31); CHLORIDE LEVEL 117 MMOL/L (98-107); CREATININE FOR GFR 1.70 MG/DL (0.55-1.30); GLOMERULAR FILTRATION RATE 33.1 (>45); POTASSIUM SERUM 4.5 MMOL/L (3.5-5.1); SODIUM LEVEL 144 MMOL/L (136-145)
[2025-07-19 14:00] VITALS: BP 125/58; TEMP 99.1; O2SAT 96
[2025-07-19 14:49] LABS: CHOLESTEROL LEVEL 115 MG/DL (<200); CHOLESTEROL RISK RATIO 2.31 (<5); LDL CHOLESTEROL 48.5 MG/DL (<100); NON-HDL-C 65.3 MG/DL; TRIGLYCERIDES LEVEL 84 MG/DL (<150)
[2025-07-19 16:45] LABS: CK-MB VALUE MASS 3.4 NG/ML (<3.6)
[2025-07-19 16:47] LABS: CPK CREATINE PHOSPHOKINASE 48.0 U/L (34-145); MB/CK RELATIVE INDEX 7.08 (< OR =4)
[2025-07-19 19:38] VITALS: BP 136/60; TEMP 98.4; O2SAT 96
[2025-07-19 20:00] VITALS: O2SAT 94
[2025-07-20 04:29] VITALS: BP 144/65; TEMP 98.1; O2SAT 91
[2025-07-20 06:45] LABS: PLATELET COUNT, AUTOMATED 162 10^3/uL (150-450)
[2025-07-20 07:15] LABS: ALT/SGPT 17.0 U/L (7.0-40); AST/SGOT 16.0 U/L (<34); CALCIUM LEVEL 8.9 MG/DL (8.3-10.6); CARBON DIOXIDE LEVEL 20.0 MMOL/L (20-31); CHLORIDE LEVEL 113.0 MMOL/L (98-107); CREATININE FOR GFR 1.31 MG/DL (0.55-1.30); GLOMERULAR FILTRATION RATE 45.2 (>45); POTASSIUM SERUM 4.6 MMOL/L (3.5-5.1); SODIUM LEVEL 141.0 MMOL/L (136-145)
[2025-07-20 08:40] VITALS: BP 151/69
[2025-07-20] MEDS ORDERED: PRED20TA PO (13:57)
[2025-07-20] MEDS ORDERED: ACET32TAB PO (13:57)
[2025-07-20] MEDS ORDERED: NICO21PAT TD (13:57)
[2025-07-20 14:00] VITALS: BP 144/65; TEMP 98.4; O2SAT 94
== END 2025-07-20 14:58 | disposition home or self-care (01) | DRG 190 ==
LOC: EDBD 13:19 → M ED 13:19 → M ED INP 13:20 → M MS5PR 23:40 → OBSVTOIN 07-20 10:19
PROVIDERS: ADMIT Internal Medicine; ATTEND Internal Medicine
DX: J44.1 Chronic obstructive pulmonary disease with (acute) exacerbation (principal); E43 Unspecified severe protein-calorie malnutrition; J96.01 Acute respiratory failure with hypoxia; B20 Human immunodeficiency virus [HIV] disease; N18.4 Chronic kidney disease, stage 4 (severe); Z68.1 Body mass index [BMI] 19.9 or less, adult; I73.9 Peripheral vascular disease, unspecified; F17.210 Nicotine dependence, cigarettes, uncomplicated; B34.8 Other viral infections of unspecified site; Z95.828 Presence of other vascular implants and grafts; Z90.49 Acquired absence of other specified parts of digestive tract; I12.9 Hypertensive chronic kidney disease with stage 1 through stage 4 chronic kidney disease, or unspecified chronic kidney disease; K21.9 Gastro-esophageal reflux disease without esophagitis; G89.29 Other chronic pain; E87.6 Hypokalemia; Z79.899 Other long term (current) drug therapy; R00.0 Tachycardia, unspecified; M94.0 Chondrocostal junction syndrome [Tietze]